=== PATIENT | female | born 1965 | race Caucasian/White ===

== ENCOUNTER → 2016-10-29 | Outpatient (CLI) | payer BC ==
[~2016-10-29] MED LIST: AMLO5TAB2 PO; DICL75TA2 PO; HYDR-3876 PO; HYDR25TA4 PO; LEVO137T17 PO; LEVO150T6 PO; LISI1TAB10 PO; METF1000 PO; MTF500T PO; NAPR-243 PO; NAPR500T3 PO; NITR-65 PO; NITR-68 PO; OXYC-471 PO; PNT40TEC PO; SERT50TA9 PO; TAMS0.4C98 PO
--- NOTE | 2016-10-29 19:54 | Diagnostic Imaging Report ---
INDICATION: Screening. At this time there are no current complaints. EXAMINATION: Bilateral digital screening mammogram with CAD. The current study was also evaluated with a Computer Aided Detection (CAD) system. COMPARISON: This is the patient's baseline study. FINDINGS: There are scattered fibroglandular densities in both breasts which could obscure a lesion. There is no primary or secondary sign of malignancy noted. IMPRESSION: 1. There is no evidence for malignancy. 2. The patient should have her annual bilateral screening mammogram on schedule in October of 2017. ACR BI-RADS Category 1: Negative. Result letter will be mailed to the patient. Note: At least 10% of breast cancer is not imaged by mammography. Dictated by: Dictated on workstation # [id number]
== END ==
LOC: RAD 15:16
PROVIDERS: ATTEND Nurse Practitioner Family
DX: Z12.31 Encounter for screening mammogram for malignant neoplasm of breast (principal)
CPT/HCPCS: 77067

== ENCOUNTER 2017-03-12 21:59 | Emergency (ER) | payer BC ==
[~2017-03-12] VITALS: Ht 157.5 cm; Wt 99.8 kg
[2017-03-12] MEDS ORDERED: ALPR0.5T7 (22:09)
[2017-03-12 22:19] LABS: BILIRUBIN,URINE NEGATIVE (NEGATIVE); KETONES,URINE NEGATIVE (NEGATIVE); LEUKOCYTE ESTERASE ,URINE NEGATIVE (NEGATIVE); NITRITE,URINE NEGATIVE (NEGATIVE); PH,URINE 6.5 (5-9); PROTEIN,URINE NEGATIVE (NEGATIVE); UROBILINOGEN,URINE NORMAL (NORMAL)
--- NOTE | 2017-03-12 22:25 | ED GU-Female ---
General Chief Complaint: Abdominal/GI Problems Stated Complaint: R SIDE, BACK, STOMACH PAIN Nursing Triage Note: c/o R flank pain wrapping around to R abdomen Nursing Sepsis Screen: No Definite Risk Source: patient Exam Limitations: no limitations History of Present Illness Time seen by provider: 22:25 Initial Comments Patient presents with earlier back flank pain on the right side starting up and urinary hesitancy. She has no dysuria. She has no fevers or chills. She says she had kidney stones about a year ago so large and to be glass about by Dr. Matias. She is having no nausea Allergies and Home Medications Allergies Coded Allergies: ciprofloxacin (Verified Allergy, Intermediate, N/V, 11/06/15) Home Medications Levothyroxine Sodium 150 Mcg Tablet, 150 MCG PO DAILY, (Reported) Constitutional: see HPI, No chills, No diaphoresis, No fever, No malaise Cardiovascular: No chest pain, No palpitations Gastrointestinal: see HPI, No diarrhea, No nausea, No vomiting Genitourinary: denies burning, denies dysuria, denies incontinence (hesitancy) , other Musculoskeletal: see HPI, back pain (right flank) Skin: No pruritus, No rash Past Nzfehbg-Yrxwgb-Nswoay Hx Patient Social History Alcohol Use: Denies Use Recreational Drug Use: No Smoking Status: Never a Smoker Recent Foreign Travel: No Contact w/Someone Who Travel: No Recent Infectious Disease Expo: No Recent Hopitalizations: No Immunizations Up To Date Tetanus Booster (TDap): Unknown Seasonal Allergies Seasonal Allergies: No Surgeries HX Surgeries: Yes (SHOULDER SCOPE) Surgeries: Section, Hysterectomy Respiratory Hx Respiratory Disorders: No Cardiovascular Hx Cardiac Disorders: Yes (STRESS TEST OVER A YEAR AGO - NO PROBLEMS) Cardiac Disorders: Hypertension Neurological Hx Neurological Disorders: Yes (HASN'T HAD ONE IN A VERY LONG TIME) Reproductive System Hx Reproductive Disorders: No HIV/AIDS: No Female Reproductive Disorders: Denies Genitourinary Hx Genitourinary Disorders: Yes Genitourinary Disorders: Kidney Stones Gastrointestinal Hx Gastrointestinal Disorders: No (GALLSTONES) Gastrointestinal Disorders: Gall Bladder Disease Musculoskeletal Hx Musculoskeletal Disorders: Yes (ARTHRITIS IN HIPS) Musculoskeletal Disorders: Arthritis Endocrine Hx Endocrine Disorders: Yes Endocrine Disorders: Hypothyroidsim HEENT HX ENT Disorders: Yes (GLASSES) Loss of Vision: Bilateral Hearing Impairment: Denies Cancer Hx Cancer: No Psychosocial Hx Psychiatric Problems: Yes Behavioral Health Disorders: Anxiety Integumentary HX Skin/Integumentary Disorder: No Blood Transfusions Hx Blood Disorders: No Adverse Reaction to a Blood Tr: No Family Medical History Family Medial History: Coronary artery bypass surgery 19 MOTHER Dementia 19 FATHER Diabetes mellitus 19 MOTHER FH: chronic obstructive pulmonary disease 19 MOTHER FH: emphysema 19 FATHER Thyroid disease 19 FATHER Physical Exam Vital Signs Vital Sign - Last 12Hours 03/12/17 22:07 Temp 96.7 Pulse 58 Resp 18 B/P (MAP) 185/93 Pulse Ox 95 Capillary Refill : Less Than 3 Seconds General Appearance: WD/WN, mild distress HEENT: PERRL/EOMI, pharynx normal Neck: full range of motion, normal inspection Cardiovascular: normal peripheral pulses, regular rate, rhythm, no edema Respiratory: chest non-tender, lungs clear Gastrointestinal: normal bowel sounds, non tender Back: normal inspection, CVA tenderness (R) Neurologic/Psychiatric: alert, oriented x 3 Skin: normal color, warm/dry Progress/Results/Core Measures Results/Orders Lab Results Laboratory Tests Test 03/12/17 22:10 Range/Units Urine Color YELLOW Urine Clarity CLEAR Urine pH 6.5 5-9 Urine Specific Lamar 1.005 L 1.016-1.022 Urine Protein NEGATIVE NEGATIVE Urine Glucose (UA) NEGATIVE NEGATIVE Urine Ketones NEGATIVE NEGATIVE Urine Nitrite NEGATIVE NEGATIVE Urine Bilirubin NEGATIVE NEGATIVE Urine Urobilinogen NORMAL NORMAL MG/DL Urine Leukocyte Esterase NEGATIVE NEGATIVE Urine RBC (Auto) 5+ H NEGATIVE Urine RBC 5-10 H /HPF Urine WBC NONE /HPF Urine Squamous Epithelial Cells 2-5 /HPF Urine Crystals NONE /LPF Urine Bacteria NONE /HPF Urine Casts NONE /LPF Urine Mucus NEGATIVE /LPF Urine Culture Indicated NO My Orders Orders - MATTHEW HARRIS Ua Culture If Indicated (03/12/17 22:12) Urine Bedside (03/12/17 22:26) Ct Abd/Pelvis Wo(Kidney Stone) (03/12/17 22:26) Saline Lock/Iv-Start (03/12/17 22:26) Ns Iv 1000 Ml (Sodium Chloride 0.9%) (03/12/17 22:26) Ketorolac Injection (Toradol Injection) (03/12/17 22:26) Fentanyl Injection (Sublimaze Injection (03/12/17 23:05) Ceftriaxone Injection (Rocephin Injectio (03/12/17 23:30) Abdomen, Flat & Upright/Decub (03/12/17 23:22) Hydrocodone/Apap 10/325 Tablet (Lortab 1 (03/12/17 23:30) Medications Given in ED Current Medications Medications Dose Ordered Sig/Wilber Route Start Time Stop Time Status Last Admin Dose Admin Acetaminophen/ Hydrocodone Bitart 1 ea ONCE ONCE PO 03/12/17 23:30 03/12/17 23:32 DC 03/12/17 23:37 1 EA Ceftriaxone Sodium 1000 mg/ Sodium Chloride 50 ml @ 100 mls/hr ONCE ONCE IV 03/12/17 23:30 03/12/17 23:59 DC 03/12/17 23:37 100 MLS/HR Sodium Chloride 1,000 ml @ 0 mls/hr Q0M ONCE IV 03/12/17 22:26 03/12/17 22:28 DC 03/12/17 22:32 0 MLS/HR Vital Signs/I&O Vital Sign - Last 12Hours 03/12/17 22:07 Temp 96.7 Pulse 58 Resp 18 B/P (MAP) 185/93 Pulse Ox 95 Blood Pressure Mean: 123 Consults Consults : Consulting Physician: GEOFFREY ERNST MD Consults Notes [id number]: Discussed the case. He recommends giving her pain controlled and if she can have pain controlled and there is no signs of sepsis or infection she could be given a gram or Rocephin and sent out with ciprofloxacin as well as hydrocodone's 10 x 3 25 2 tablets every 6 hours when necessary first inkling of pain. She should follow up at 2:30 in the afternoon Wednesday in his office that he can get her set up to have it taken care of Wednesday. He also has to get a KUB done today so it has something to compare it. He also asked that we fax all records over to his office. Departure Impression Impression: Primary Impression: Kidney stone on right side Disposition: 01 HOME, SELF-CARE Condition: Improved Departure-Patient Inst. Decision time for Depature: 00:53 Referrals: [facility] (PCP) Primary Care Physician Patient Instructions: Kidney Stones (DC) Add. Discharge Instructions: You have a 8-9 mm kidney stone on the right side that will not pass on its own. You can use Naprosyn 2 tablets twice a day and then at the earliest inkling of pain you should take 1-2 tablets of the oxycodone every 6 hours as needed. While you're on the oxycodone you should be on MiraLAX at least once a day keep your stools moving. You should not drive or do anything to involve making contracts or operating heavy machinery while under the influence of opiates. You 'll be sent with antibiotics to the pharmacy to [facility] and be taken twice daily. You should report to the urologist office Wednesday at 2:30 in the afternoon so you can be set up to have the stone removed Wednesday. If you're having fevers or intractable nausea or pain then you should return to the ER. If you're out of pain medicines you can also talk to your primary care physician and get refills . All discharge instructions reviewed with patient and/or family. Voiced understanding. Scripts Oxycodone HCl/Acetaminophen (Percocet 10-325 mg Tablet) 1 Each Tablet 1-2 EACH PO Q6H Y for PAIN-MILD TO MODERATE, #30 TAB 0 Refills Prov: MATTHEW HARRIS 03/13/17 Cephalexin (Keflex) 500 Mg Capsule 500 MG PO BID for 14 Days, #28 CAP 0 Refills Prov: MATTHEW HARRIS 03/13/17 Work/School Note: Work Release Form Date Seen in the Emergency Department: Mar 13, 2017 Return to Work: Mar 13, 2017 Restrictions: Need Release from Doctor Other Restrictions Listed Below: No driving or operating heavy machinery Copy Copies To 1: KAM BRITO DO Copies To 2: GEOFFREY ERNST MD, TITUS J Mar 12, 2017 22:25
[2017-03-12] MEDS ORDERED: KETOROLAC 30 MG/ML VIAL IM STA (22:26)
[2017-03-12] MEDS ORDERED: NS IV 1000 ML 1,000 ML IV ONE (22:26)
[2017-03-12] MEDS ORDERED: fentaNYL INJECTION 100 MCG/2 ML AMP IVP STA (23:05)
[2017-03-12] MEDS ORDERED: HYDROcodone/APAP 10 MG/325 MG (LORTAB) TAB PO ONE (23:30)
[2017-03-12] MEDS ORDERED: cefTRIAXone INJECTION 1,000 MG in NS (IVPB) 50 ML IV ONE (23:30)
[2017-03-13] MEDS ORDERED: OXYC-202 PO (00:59)
[2017-03-13] MEDS ORDERED: CEPH-507 PO (00:59)
[2017-03-13 01:00] VITALS: BP 147/93
[2017-03-13] MEDS ORDERED: RX-OXYCODONE/APAP 5-325 MG #4 TAB PK PO PRN (01:30)
--- NOTE | 2017-03-13 07:09 | Diagnostic Imaging Report ---
INDICATION: Right lower quadrant pain. FINDINGS: The lung bases are clear. The bowel gas pattern is nonspecific. There is no free air. The osseous structures are unremarkable. There are several calcified phleboliths in the pelvis. IMPRESSION: Nonspecific bowel gas pattern Dictated by: Dictated on workstation # [id number]
--- NOTE | 2017-03-13 08:18 | Diagnostic Imaging Report ---
PROCEDURE: CT urinary tract, rule out kidney stone. TECHNIQUE: Multiple contiguous axial images were obtained through the abdomen and pelvis without the use of intravenous contrast. INDICATION: Right lower quadrant pain with a history of lithotripsy, partial hysterectomy and . Comparison is made with prior examination from 06/11/16. FINDINGS: The heart size is normal. The lung bases are clear. The liver is normal in size without focal lesions. There is cholelithiasis. There is no gallbladder wall thickening or pericholecystic fluid. The spleen is unremarkable. The pancreas and adrenal glands are unremarkable. There is a 3 mm nonobstructing stone in the left kidney. There is enlargement of the right kidney with moderately severe right hydronephrosis. This is secondary to a 6.5 mm stone in the region of the right UPJ. The bowel gas pattern is nonspecific. The appendix is normal. There is no free air. There is no pelvic mass, adenopathy or free fluid. The osseous structures are unremarkable. IMPRESSION: Moderately severe right hydronephrosis secondary to a 6.5 mm stone in the region of the right UPJ. Additionally, there are several nonobstructing additional stones in both kidneys, right greater than left. Cholelithiasis Dictated by: Dictated on workstation # [id number]
--- OUTSIDE RECORDS SUMMARY | 2017-03-16 08:31 | XMS REPORT ---
Author MALI Bhatt [facility] eClinicalWorks Address Unknown Phone Unavailable Care Team Providers Care Manager Icu Name Role Phone MALI ORDOÑEZ CP Unavailable Allergies, Adverse Reactions, Alerts Substance Reaction Event Type Cipro vomiting Drug Allergy Amitriptyline HCl fatigue Drug Allergy Problems Problem Type Condition Code Onset Dates Condition Status Problem Dysuria 788.1 Active Problem Trigger finger (acquired) 727.03 Active Problem Abdominal pain, unspecified site 789.00 Active Problem Diabetes 250.00 Active Problem Calculus of kidney 592.0 Active Problem Hypertension, benign I10 Active Problem Dysphagia, unspecified 787.20 Active Problem Insomnia, unspecified 780.52 Active Problem Personal history of noncompliance with medical treatment, presenting hazards to health V15.81 Active Problem Chest pain, unspecified 786.50 Active Assessment Hypertension, benign I10 Active Problem Influenza with other respiratory manifestations 487.1 Active Problem Nausea with vomiting 787.01 Active Problem Hematuria, unspecified 599.70 Active Medications Medication Code System Code Instructions Start Date End Date Status Dosage Lisinopril-Hydrochlorothiazide [facility] 52013663831 20-25 TAKE ONE TABLET BY MOUTH DAILY Metformin HCl [facility] [address]-97 1000 MG Orally Twice a day February 01, 2015 1 tablet with meals Neurontin [facility] [address]-29 100 mg Sep 10, 2014 1-3 capsule by Oral route 1 time per day PRN QHS for insomnia levothyroxine ND 0 150 mcg 1 tab(s) orally once a day Sep 10, 2014 1 tablet by Oral route 1 time [place] [address]-22 5 MG Orally Once a day Jul 24, 2015 1 tablet Procedures Procedure Coding System Code Date Office Visit, Est Pt., Level 3 CPT-4 39509 Jul 24, 2015 Vital Signs Date/Time: Jul 24, 2015 Temperature 99.5 F Weight 251.6 lbs Height 62 in BMI 46.01 Index Blood Pressure Diastolic 90 mmHg Blood Pressure Systolic 140 mmHg Cardiac Monitoring Heart Rate 60 bpm Results No Known Results Summary Purpose eClinicalWorks Submission
--- OUTSIDE RECORDS SUMMARY | 2017-03-16 08:31 | XMS REPORT ---
Author MALI Bhatt [facility] eClinicalWorks Address Unknown Phone Unavailable Care Team Providers Care Elementary Special Education Teacher Name Role Phone MALI ORDOÑEZ CP Unavailable Allergies, Adverse Reactions, Alerts Substance Reaction Event Type Cipro vomiting Drug Allergy Amitriptyline HCl fatigue Drug Allergy Problems Problem Type Condition Code Onset Dates Condition Status Problem Hematuria, unspecified 599.70 Active Problem Abdominal pain, unspecified site 789.00 Active Problem Dysuria 788.1 Active Problem Calculus of kidney 592.0 Active Problem Personal history of noncompliance with medical treatment, presenting hazards to health V15.81 Active Problem Diabetes 250.00 Active Problem Insomnia, unspecified 780.52 Active Problem Trigger finger (acquired) 727.03 Active Problem Chest pain, unspecified 786.50 Active Problem Dysphagia, unspecified 787.20 Active Assessment Shoulder pain, left 719.41 Active Assessment Diabetes 250.00 Active Problem Influenza with other respiratory manifestations 487.1 Active Problem Nausea with vomiting 787.01 Active Medications Medication Code System Code Instructions Start Date End Date Status Dosage Lisinopril-Hydrochlorothiazide [facility] 02589688355 20-25 TAKE ONE TABLET BY MOUTH DAILY levothyroxine NDC 0 150 mcg 1 tab(s) orally once a day Sep 10, 2014 1 tablet by Oral route 1 time per day Neurontin [facility] [address]-51 100 mg Sep 10, 2014 1-3 capsule by Oral route 1 time per day PRN QHS for insomnia Diclofenac Sodium [facility] [address]-55 75 MG Orally Once a day Jun 05, 2015 Jul 05, 2015 1 tablet Cetirizine HCl [facility] [address]-72 10 MG Orally Once a day Jun 05, 2015 Jul 05, 2015 1 tablet as needed Metformin HCl [facility] [address]-98 1000 MG Orally Twice a day February 01, 2015 1 tablet with meals Procedures Procedure Coding System Code Date X-RAY EXAM OF SHOULDER CPT-4 87765 Jun 05, 2015 Office Visit, Est Pt., Level 3 CPT-4 36747 Jun 05, 2015 GLYCATED HEMOGLOBIN TEST CPT-4 42617 Jun 05, 2015 Vital Signs Date/Time: Jun 05, 2015 Temperature 97.3 F Weight 249.7 lbs Height 62 in BMI 45.67 Index Blood Pressure Diastolic 84 mmHg Blood Pressure Systolic 138 mmHg Cardiac Monitoring Heart Rate 76 bpm Results Name Result Date Reference Range Unit Abnormality Flag A1C (IN HOUSE) Summary Purpose eClinicalWorks Submission
--- OUTSIDE RECORDS SUMMARY | 2017-03-16 08:31 | XMS REPORT ---
Author Author MALI ORDOÑEZ [facility] Address [address] [place] [address] Care Team Providers Care Acquisition Associate Name Role Phone MALI ORDOÑEZ Unavailable PROBLEMS Type Condition ICD9-CM Code [id number] Code Onset Dates Condition Status SNOMED Code Problem Chest pain, unspecified 786.50 Active 98704545 Problem Calculus of kidney 592.0 Active 89387209 Problem Personal history of noncompliance with medical treatment, presenting hazards to health V15.81 Active 202747245 Problem Diabetes type 2, controlled E11.9 Active 26359967 Assessment Acquired hypothyroidism E03.9 May, Active 283041129 Problem Hypertension, benign I10 Active 86332213 Problem Acute upper respiratory infection, unspecified J06.9 Active 187346277 Problem Cough R05 Active 55577334 Problem Diabetes 250.00 Active 76302354 Problem Other viral agents as the cause of diseases classified elsewhere B97.89 Active 066419065 Problem Influenza with other respiratory manifestations 487.1 Active 7867379 Problem Nausea with vomiting 787.01 Active 87653910 Assessment Controlled type 2 diabetes mellitus without complication, without long-term current use of insulin E11.9 May, Active 698743699 Assessment Epigastric pain R10.13 May, Active 93818003 Problem Abdominal pain, unspecified site 789.00 Active 30054725 Problem Trigger finger (acquired) 727.03 Active 4601799 Problem Hematuria, unspecified 599.70 Active 55185653 Problem Insomnia, unspecified 780.52 Active 185636657 Problem Dysuria 788.1 Active 41090047 Problem Dysphagia, unspecified 787.20 Active 88227776 ALLERGIES No Known Allergies SOCIAL HISTORY No smoking Hx information available PLAN OF CARE VITAL SIGNS MEDICATIONS No Known Medications RESULTS Name Result Date Reference Range AMYLASE 2016-05-26 Amylase, Serum 46 31-124 LIPASE 2016-05-26 Lipase, Serum 44 0-59 TSH 2016-05-26 TSH 3.150 0.450-4.500 LIPID PANEL 2016-05-26 Cholesterol, Total 193 100-199 Triglycerides 126 0-149 HDL Cholesterol 40 >39 VLDL Cholesterol Tobin 25 5-40 LDL Cholesterol Calc 128 0-99 CMP 2016-05-26 Glucose, Serum 134 65-99 BUN 13 6-24 Creatinine, Serum 0.64 0.57-1.00 eGFR If NonAfricn Am 106 >59 eGFR If Africn Am 122 >59 BUN/Creatinine Ratio 20 9-23 Sodium, Serum 142 134-144 Potassium, Serum 4.2 3.5-5.2 Chloride, Serum 99 97-108 Carbon Dioxide, Total 23 18-29 Calcium, Serum 9.8 8.7-10.2 Protein, Total, Serum 7.3 6.0-8.5 Albumin, Serum 4.1 3.5-5.5 Globulin, Total 3.2 1.5-4.5 A/G Ratio 1.3 1.1-2.5 Bilirubin, Total 0.4 0.0-1.2 Alkaline Phosphatase, S 93 39-117 AST (SGOT) 45 0-40 ALT (SGPT) 45 0-32 CBC 2016-05-26 WBC 6.0 3.4-10.8 RBC 4.66 3.77-5.28 Hemoglobin 13.2 11.1-15.9 Hematocrit 40.6 34.0-46.6 MCV 87 79-97 MCH 28.3 26.6-33.0 MCHC 32.5 31.5-35.7 RDW 13.5 12.3-15.4 Platelets 286 150-379 Neutrophils 58 Lymphs 30 Monocytes 10 Eos 2 Basos 0 Neutrophils (Absolute) 3.5 1.4-7.0 Lymphs (Absolute) 1.8 0.7-3.1 Monocytes(Absolute) 0.6 0.1-0.9 Eos (Absolute) 0.1 0.0-0.4 Baso (Absolute) 0.0 0.0-0.2 Immature Granulocytes 0 Immature Grans (Abs) 0.0 0.0-0.1 PROCEDURES Procedure Date Ordered Related Diagnosis Body Site COMPLETE CBC W/AUTO DIFF WBC May 26, 2016 COMPREHEN METABOLIC PANEL May 26, 2016 VENIPUNCT, ROUTINE* May 26, 2016 ASSAY OF AMYLASE May 26, 2016 ASSAY THYROID STIM HORMONE May 26, 2016 LIPID PANEL Sept 20, 2016 ASSAY OF LIPASE May 26, 2016 IMMUNIZATIONS No Known Immunizations
--- OUTSIDE RECORDS SUMMARY | 2017-03-16 08:32 | XMS REPORT ---
Author Author ÁNGEL TILLMAN [facility] eClinicalWorks Address Unknown Phone Unavailable Care Team Providers Care Education Managers Name Role Phone ÁNGEL TILLMAN CP Unavailable Allergies No Known Allergies Problems Problem Type Condition Code Onset Dates [...] Problem Chest pain, unspecified 786.50 Active Assessment Impingement syndrome, shoulder, left M75.42 Active Problem Influenza with other respiratory manifestations 487.1 Active Problem Nausea with vomiting 787.01 Active Assessment SLAP lesion of left shoulder S43.432A Active Problem Hematuria, unspecified 599.70 Active Medications No Known Medications Procedures Procedure Coding System Code Date Office Visit, Est Pt., Level 3 CPT-4 55227 Oct 10, 2015 Vital Signs Date/Time: Oct 10, 2015 Blood Pressure Diastolic 82 mmHg Blood Pressure Systolic 121 mmHg Height 62 in Results No Known Results Summary Purpose eClinicalWorks Submission
--- OUTSIDE RECORDS SUMMARY | 2017-03-16 08:32 | XMS REPORT ---
Author Author MALI ORDOÑEZ [facility] eClinicalWorks Address Unknown Phone Unavailable Care Team Providers Care Senior Director Marketing Name Role Phone MALI ORDOÑEZ CP Unavailable Allergies No Known Allergies Problems Problem Type Condition Code Onset Dates Condition Status Problem Abdominal pain, unspecified site 789.00 Active Problem Insomnia, unspecified 780.52 Active Problem Trigger finger (acquired) 727.03 Active Problem Hypertension, benign I10 Active Problem Diabetes 250.00 Active Problem Diabetes type 2, controlled E11.9 Active Problem Chest pain, unspecified 786.50 Active Problem Dysphagia, unspecified 787.20 Active Problem Calculus of kidney 592.0 Active Problem Personal history of noncompliance with medical treatment, presenting hazards to health V15.81 Active Problem Influenza with other respiratory manifestations 487.1 Active Problem Nausea with vomiting 787.01 Active Problem Hematuria, unspecified 599.70 Active Problem Dysuria 788.1 Active Medications Medication Code System Code Instructions Start Date End Date Status Dosage Metformin HCl [facility] [address]-52 1000 MG Orally Twice a day 1 tablet with meals Amlodipine Besylate [facility] [address]-75 5 MG Orally Once a day 1 tablet Lisinopril-Hydrochlorothiazide [facility] [address]-53 20-25 MG Orally Once a day 1 tablet Diclofenac Sodium [facility] [address]-54 75 MG Orally Once a day 1 tablet Results No Known Results Summary Purpose eClinicalWorks Submission
--- OUTSIDE RECORDS SUMMARY | 2017-03-16 08:32 | XMS REPORT ---
Author Author MALI ORDOÑEZ [facility] Address [address] [place] [address] Care Team Providers Care Fluorescent Solution Mixer Name Role Phone MALI ORDOÑEZ Unavailable PROBLEMS Type Condition ICD9-CM Code [id number] Code Onset Dates Condition Status SNOMED Code Problem Chest pain, unspecified 786.50 Active 64497008 Problem Calculus of kidney 592.0 Active 08665256 Problem Personal history of noncompliance with medical treatment, presenting hazards to health V15.81 Active 374437635 Problem Diabetes type 2, controlled E11.9 Active 84695843 Problem Hypertension, benign I10 Active 62615423 Problem Acute upper respiratory infection, unspecified J06.9 Active 638732638 Problem Cough R05 Active 28393406 Problem Diabetes 250.00 Active 12215186 Problem Other viral agents as the cause of diseases classified elsewhere B97.89 Active 080983212 Problem Influenza with other respiratory manifestations 487.1 Active 8860164 Problem Nausea with vomiting 787.01 Active 33087547 Assessment Right upper quadrant pain R10.11 May, Active 771208277 Problem Abdominal pain, unspecified site 789.00 Active 60283763 Problem Trigger finger (acquired) 727.03 Active 1192299 Problem Hematuria, unspecified 599.70 Active 87333302 Problem Insomnia, unspecified 780.52 Active 061390369 Problem Dysuria 788.1 Active 54048807 Problem Dysphagia, unspecified 787.20 Active 57248084 ALLERGIES No Known Allergies SOCIAL HISTORY No smoking Hx information available PLAN OF CARE VITAL SIGNS MEDICATIONS No Known Medications RESULTS Name Result Date Reference Range Ultrasound : Gallbladder 2016-06-03 PROCEDURES No Known procedures IMMUNIZATIONS No Known Immunizations
--- OUTSIDE RECORDS SUMMARY | 2017-03-16 08:32 | XMS REPORT ---
Author Author MALI ORDOÑEZ Organization eClinicalWorks Address Unknown Phone Unavailable Care Team Providers Care Lease Attendant Name Role Phone MALI ORDOÑEZ CP Unavailable Allergies No Known Allergies Problems Problem Type Condition Code Onset Dates Condition Status Problem Hematuria, unspecified 599.70 Active Problem Abdominal pain, unspecified site 789.00 Active Problem Dysuria 788.1 Active Problem Influenza with other respiratory manifestations 487.1 Active Problem Nausea with vomiting 787.01 Active Problem Calculus of kidney 592.0 Active Problem Personal history of noncompliance with medical treatment, presenting hazards to health V15.81 Active Problem Diabetes 250.00 Active Problem Insomnia, unspecified 780.52 Active Problem Trigger finger (acquired) 727.03 Active Problem Chest pain, unspecified 786.50 Active Problem Dysphagia, unspecified 787.20 Active Medications No Known Medications Results No Known Results Summary Purpose [employer] Submission
--- OUTSIDE RECORDS SUMMARY | 2017-03-16 08:32 | XMS REPORT ---
Author Author MALI ORDOÑEZ [facility] [place] eClinicalWorks Address Unknown Phone Unavailable Care Team Providers Care Rn Diabetes Name Role Phone MALI ORDOÑEZ CP Unavailable [...] Problem Chest pain, unspecified 786.50 Active Problem Influenza with other respiratory manifestations 487.1 Active Problem Nausea with vomiting 787.01 Active Problem Hematuria, unspecified 599.70 Active Medications No Known Medications Results No Known Results Summary Purpose eClinicalWorks Submission
--- OUTSIDE RECORDS SUMMARY | 2017-03-16 08:32 | XMS REPORT ---
Author Author MALI ORDOÑEZ [facility] Address [address] [place] [address] Care Team Providers Care Gericare Aide Name Role Phone MALI ORDOÑEZ Unavailable PROBLEMS Type Condition ICD9-CM Code EUY75-NM Code Onset Dates Condition Status SNOMED Code Problem Chest pain, unspecified 786.50 Active 90032627 Problem Calculus of kidney 592.0 Active 44994418 Problem Personal history of noncompliance with medical treatment, presenting hazards to health V15.81 Active 160582178 Problem Diabetes type 2, controlled E11.9 Active 72977966 Problem Hypertension, benign I10 Active 67371239 Problem Acute upper respiratory infection, unspecified J06.9 Active 722311322 Problem Cough R05 Active 20125153 Problem Diabetes 250.00 Active 03979439 Problem Other viral agents as the cause of diseases classified elsewhere B97.89 Active 211504411 Problem Influenza with other respiratory manifestations 487.1 Active 4124559 Problem Nausea with vomiting 787.01 Active 87254300 Assessment Hematuria R31.9 May, Active 54905135 Problem Abdominal pain, unspecified site 789.00 Active 26204759 Problem Trigger finger (acquired) 727.03 Active 9317276 Problem Hematuria, unspecified 599.70 Active 10431673 Problem Insomnia, unspecified 780.52 Active 097008913 Problem Dysuria 788.1 Active 94202506 Problem Dysphagia, unspecified 787.20 Active 81588299 ALLERGIES No Known Allergies SOCIAL HISTORY No smoking Hx information available PLAN OF CARE VITAL SIGNS MEDICATIONS No Known Medications RESULTS Name Result Date Reference Range UA LONG DIP (IN HOUSE) 2016-06-04 Lot # [id number] Exp date May 2017 Clarity cloudy Color dark red Odor no GLU Negative HUNTER Negative KET Negative SG >=1.030 BLO +++ pH 6.5 Protein + URO 1.0 NIT Negative LYRIC Negative Lot # [id number] Exp date Apr 2017 PROCEDURES Procedure Date Ordered Related Diagnosis Body Site URINALYSIS, AUTO, W/O SCOPE Jun 04, 2016 IMMUNIZATIONS No Known Immunizations
--- OUTSIDE RECORDS SUMMARY | 2017-03-16 08:32 | XMS REPORT ---
Author Author MALI ORDOÑEZ [facility] Address [address] [place] [address] Care Team Providers Care Commercial Pest Control Technician Name Role Phone MALI ORDOÑEZ Unavailable PROBLEMS Type Condition ICD9-CM Code TZX78-LM Code Onset Dates Condition Status SNOMED Code Problem Chest pain, unspecified 786.50 Active 06357696 Problem Calculus of kidney 592.0 Active 80635214 Problem Personal history of noncompliance with medical treatment, presenting hazards to health V15.81 Active 261717267 Problem Diabetes type 2, controlled E11.9 Active 88114070 Assessment Acquired hypothyroidism E03.9 May, Active 876738442 Problem Hypertension, benign I10 Active 17836585 Problem Acute upper respiratory infection, unspecified J06.9 Active 777099951 Problem Cough R05 Active 10633002 Problem Diabetes 250.00 Active 08823282 Problem Other viral agents as the cause of diseases classified elsewhere B97.89 Active 798051976 Problem Influenza with other respiratory manifestations 487.1 Active 6962838 Problem Nausea with vomiting 787.01 Active 52017729 Assessment Controlled type 2 diabetes mellitus without complication, without long-term current use of insulin E11.9 May, Active 148143200 Assessment Epigastric pain R10.13 May, Active 15461688 Problem Abdominal pain, unspecified site 789.00 Active 84057377 Problem Trigger finger (acquired) 727.03 Active 2601082 Problem Hematuria, unspecified 599.70 Active 86311446 Problem Insomnia, unspecified 780.52 Active 003092456 Problem Dysuria 788.1 Active 01626265 Problem Dysphagia, unspecified 787.20 Active 32838657 ALLERGIES Substance Reaction Event Type Date Status Cipro vomiting Drug Allergy May, Active Amitriptyline HCl fatigue Drug Allergy May, Active SOCIAL HISTORY No smoking Hx information available PLAN OF CARE VITAL SIGNS Height 62 in 2016-05-25 Weight 242.0 lbs 2016-05-25 Heart Rate 82 bpm 2016-05-25 Respiratory Rate 20 2016-05-25 BMI 44.26 kg/m2 2016-05-25 Blood pressure systolic 146 mmHg 2016-05-25 Blood pressure diastolic 84 mmHg 2016-05-25 MEDICATIONS Medication Instructions Dosage Frequency Start Date End Date Duration Status Synthroid 150 MCG Orally Once a day 1 tablet 24h Mar, 30 day(s ) Active Naproxen 500 MG Orally every 12 hrs 1 tablet as needed 12h Active MetFORMIN HCl ER 500 MG Orally 2 times a day 2 tablets 12h May, 30 day(s) Active RESULTS No Results PROCEDURES Procedure Date Ordered Related Diagnosis Body Site Office Visit, Est Pt., Level 3 May 25, 2016 IMMUNIZATIONS No Known Immunizations
--- OUTSIDE RECORDS SUMMARY | 2017-03-16 08:32 | XMS REPORT ---
Author Author ÁNGEL TILLMAN [facility] eClinicalWorks Address Unknown Phone Unavailable Care Team Providers Care Stone Finisher Name Role Phone ÁNGEL TILLMAN CP Unavailable [...] Active Problem Dysphagia, unspecified 787.20 Active Assessment Impingement syndrome, shoulder, left M75.42 Active Problem Influenza with other respiratory manifestations 487.1 Active Problem Nausea with vomiting 787.01 Active Medications No Known Medications Procedures Procedure Coding System Code Date DEPO MEDROL 80 MG/ML CPT-4 J1040 Jul 04, 2015 Office Visit, Est Pt., Level 3 CPT-4 09258 Jul 04, 2015 DRAIN/INJECT, JOINT/BURSA CPT-4 45713 Jul 04, 2015 Vital Signs Date/Time: Jul 04, 2015 Blood Pressure Diastolic 86 mmHg Blood Pressure Systolic 130 mmHg Height 62 in Results Name Result Date Reference Range Unit Abnormality Flag JOINT INJECTION-INTERMEDIATE JOINT (specify site) Summary Purpose eClinicalWorks Submission
--- OUTSIDE RECORDS SUMMARY | 2017-03-16 08:32 | XMS REPORT ---
Author Author MALI ORDOÑEZ Organization eClinicalWorks Address Unknown Phone Unavailable Care Team Providers Care Sales Advisory Manager Name Role Phone MALI ORDOÑEZ CP Unavailable [...] Medications Results No Known Results Summary Purpose eduFireinicalWorks Submission
--- OUTSIDE RECORDS SUMMARY | 2017-03-16 08:32 | XMS REPORT ---
Author Author MALI ORDOÑEZ Organization eClinicalWorks Address Unknown Phone Unavailable Care Team Providers Care Enterprise Sales Person Name Role Phone MALI ORDOÑEZ CP Unavailable [...] 787.01 Active Problem Hematuria, unspecified 599.70 Active Assessment Diabetes type 2, controlled E11.9 Active Problem Dysuria 788.1 Active Medications Medication Code System Code Instructions Start Date End Date Status Dosage Metformin HCl [facility] [address]-20 1000 MG Orally Twice a day 1 tablet with meals Synthroid [facility] [address]-90 150 MCG Orally Once a day March 27, 2016 1 tablet Naproxen [facility] [address]-70 500 MG Orally every 12 hrs 1 tablet as needed Lisinopril-Hydrochlorothiazide [facility] [address]-54 20-25 MG Orally Once a day 1 tablet Amlodipine Besylate [facility] [address]-19 5 MG Orally Once a day 1 tablet Procedures Procedure Coding System Code Date Office Visit, Est Pt., Level 3 CPT-4 57444 March 27, 2016 GLYCATED HEMOGLOBIN TEST CPT-4 27298 March 27, 2016 Vital Signs Date/Time: March 27, 2016 Cardiac Monitoring Heart Rate 80 bpm Weight 242.6 lbs Height 62 in Blood Pressure Diastolic 78 mmHg Blood Pressure Systolic 138 mmHg Results No Known Results Summary Purpose eClinicalWorks Submission
--- OUTSIDE RECORDS SUMMARY | 2017-03-16 08:32 | XMS REPORT ---
Author Author MALI ORDOÑEZ [facility] eClinicalWorks Address Unknown Phone Unavailable Care Team Providers Care Brisket Puller Name Role Phone MALI ORDOÑEZ CP Unavailable [...] Active Assessment Shoulder pain, left 719.41 Active Problem Influenza with other respiratory manifestations 487.1 Active Problem Nausea with vomiting 787.01 Active Medications No Known Medications Procedures Procedure Coding System Code Date X-RAY EXAM OF SHOULDER CPT-4 04409 Jun 10, 2015 Results No Known Results Summary Purpose eClinicalWorks Submission
--- OUTSIDE RECORDS SUMMARY | 2017-03-16 08:33 | XMS REPORT ---
Author MALI Bhatt [facility] eClinicalWorks Address Unknown Phone Unavailable Care Team Providers Care Flux Tube Attendant Name Role Phone MALI ORDOÑEZ CP [...] Instructions Start Date End Date Status Dosage levothyroxine ND 0 150 mcg 1 tab(s) orally once a day Sep 10, 2014 1 tablet by Oral route 1 time per day Lisinopril-Hydrochlorothiazide [facility] 20935462568 20-25 TAKE ONE TABLET BY MOUTH DAILY Metformin HCl [facility] [address]-47 1000 MG Orally Twice a day February 01, 2015 1 tablet [place] [address]-80 5 MG Orally Once a day Jul 24, 2015 1 tablet Naproxen [facility] [address]-79 500 MG Orally every 12 hrs 1 tablet as needed Diclofenac Sodium ND 57166954516 75 Orally Once a day 1 tablet Procedures Procedure Coding System Code Date Office Visit, Est Pt., Level 3 CPT-4 82774 Aug 12, 2015 Vital Signs Date/Time: Aug 12, 2015 Temperature 97.5 F Weight 246.5 lbs Height 62 in BMI 45.08 Index Blood Pressure Diastolic 78 mmHg Blood Pressure Systolic 126 mmHg Cardiac Monitoring Heart Rate 84 bpm Results No Known Results Summary Purpose eClinicalWorks Submission
--- OUTSIDE RECORDS SUMMARY | 2017-03-16 08:33 | XMS REPORT ---
Author Author MALI ORDOÑEZ [facility] eClinicalWorks Address Unknown Phone Unavailable Care Team Providers Care Drafter Engineering Name Role Phone MALI ORDOÑEZ CP Unavailable [...] Active Problem Dysphagia, unspecified 787.20 Active Medications Medication Code System Code Instructions Start Date End Date Status Dosage Metoprolol Tartrate [facility] [address]-18 50 MG Orally Twice a day Jul 23, 2015 1 tablet Results No Known Results Summary Purpose eClinicalWorks Submission
--- OUTSIDE RECORDS SUMMARY | 2017-03-16 08:33 | XMS REPORT ---
Author Author WILL HAMMER [facility] eClinicalWorks Address Unknown Phone Unavailable Care Team Providers Care Senior Environmental Engineer Name Role Phone WILL HAMMER CP Unavailable Allergies, Adverse Reactions, Alerts Substance [...] Active Problem Hematuria, unspecified 599.70 Active Assessment Upper respiratory tract infection, unspecified type J06.9 Active Problem Dysuria 788.1 Active Medications Medication Code System Code Instructions Start Date End Date Status Dosage Zithromax Z-Peng [facility] [address]-34 250 MG Orally Once a day Jul 14, 2016 Jul 19, 2016 2 tablets on the first day, then 1 tablet daily for 4 days Naproxen [facility] [address]-06 500 MG Orally every 12 hrs 1 tablet as needed MetFORMIN HCl ER [facility] [address]-09 500 MG Orally 2 times a day May 25, 2016 2 tablets Synthroid [facility] [address]-17 150 MCG Orally Once a day March 27, 2016 1 tablet Sudafed [facility] [address]-51 30 MG Orally every 6 hrs Jul 14, 2016 1 tablet as needed Procedures Procedure Coding System Code Date Office Visit, Est Pt., Level 3 CPT-4 26147 Jul 14, 2016 Vital Signs Date/Time: Jul 14, 2016 Cardiac Monitoring Heart Rate 92 bpm Weight 238 lbs Height 62 in BMI 43.53 Index Blood Pressure Diastolic 80 mmHg Blood Pressure Systolic 132 mmHg Results No Known Results Summary Purpose eClinicalWorks Submission
--- OUTSIDE RECORDS SUMMARY | 2017-03-16 08:33 | XMS REPORT ---
Author Author MALI ORDOÑEZ [facility] eClinicalWorks Address Unknown Phone Unavailable Care Team Providers Care Laser Beam Machine Operator Name Role Phone MALI ORDOÑEZ CP Unavailable [...]
--- OUTSIDE RECORDS SUMMARY | 2017-03-16 08:33 | XMS REPORT ---
Author Author ÁNGEL TILLMAN [facility] eClinicalWorks Address Unknown Phone Unavailable Care Team Providers Care Eyelet Cutter Name Role Phone ÁNGEL TILLMAN CP Unavailable [...] Date DEPO MEDROL 80 MG/ML CPT-4 J1040 Aug 15, 2015 Office Visit, Est Pt., Level 3 CPT-4 06682 Aug 15, 2015 DRAIN/INJECT, JOINT/BURSA CPT-4 48054 Aug 15, 2015 Vital Signs Date/Time: Aug 15, 2015 Blood Pressure Diastolic 72 mmHg Blood Pressure Systolic 128 mmHg Height 62 in Results Name Result Date Reference Range Unit Abnormality Flag JOINT INJECTION-INTERMEDIATE JOINT (specify site) Summary Purpose eClinicalWorks Submission
--- OUTSIDE RECORDS SUMMARY | 2017-03-16 08:33 | XMS REPORT ---
Author Author MALI ORDOÑEZ [facility] Address [address] [place] [address] Care Team Providers Care Braille Teacher Name Role Phone MALI ORDOÑEZ Unavailable PROBLEMS Type Condition ICD9-CM Code [id number] Code Onset Dates Condition Status SNOMED Code Problem Chest pain, unspecified 786.50 Active 97589234 Problem Calculus of kidney 592.0 Active 23462517 Problem Personal history of noncompliance with medical treatment, presenting hazards to health V15.81 Active 381386298 Problem Diabetes type 2, controlled E11.9 Active 66935394 Problem Hypertension, benign I10 Active 91095171 Problem Acute upper respiratory infection, unspecified J06.9 Active 657918187 Problem Cough R05 Active 87948929 Problem Diabetes 250.00 Active 12725229 Problem Other viral agents as the cause of diseases classified elsewhere B97.89 Active 534934715 Problem Influenza with other respiratory manifestations 487.1 Active 5022204 Problem Nausea with vomiting 787.01 Active 29344288 Problem Abdominal pain, unspecified site 789.00 Active 03323024 Problem Trigger finger (acquired) 727.03 Active 5322480 Problem Hematuria, unspecified 599.70 Active 38294708 Problem Insomnia, unspecified 780.52 Active 807673075 Problem Dysuria 788.1 Active 52849629 Problem Dysphagia, unspecified 787.20 Active 47259856 ALLERGIES No Known Allergies SOCIAL HISTORY No smoking Hx information available PLAN OF CARE VITAL SIGNS MEDICATIONS No Known Medications RESULTS No Results PROCEDURES No Known procedures IMMUNIZATIONS No Known Immunizations
--- OUTSIDE RECORDS SUMMARY | 2017-03-16 08:33 | XMS REPORT ---
Author Author MALI ORDOÑEZ [facility] eClinicalWorks Address Unknown Phone Unavailable Care Team Providers Care Superintendent Stations Name Role Phone MALI ORDOÑEZ CP Unavailable [...]
--- OUTSIDE RECORDS SUMMARY | 2017-03-16 08:33 | XMS REPORT ---
Author Author MALI ORDOÑEZ Organization eClinicalWorks Address Unknown Phone Unavailable Care Team Providers Care Carpentry Supervisor Name Role Phone MALI ORDOÑEZ CP Unavailable [...] Problem Nausea with vomiting 787.01 Active Assessment Obesity, unspecified obesity severity, unspecified obesity type E66.9 Active Problem Hematuria, unspecified 599.70 Active Medications No Known Medications Procedures Procedure Coding System Code Date COMPREHEN METABOLIC PANEL CPT-4 51364 Sep 17, 2015 ASSAY THYROID STIM HORMONE CPT-4 19175 Sep 17, 2015 COMPLETE CBC W/AUTO DIFF WBC CPT-4 62703 Sep 17, 2015 VENIPUNCT, ROUTINE* CPT-4 44464 Sep 17, 2015 Results Name Result Date Reference Range Unit Abnormality Flag ROUTINE VENIPUNCTURE Summary Purpose eClinicalWorks Submission
--- OUTSIDE RECORDS SUMMARY | 2017-03-16 08:33 | XMS REPORT ---
Author MALI Bhatt [facility] eClinicalWorks Address Unknown Phone Unavailable Care Team Providers Care Shared Services And Outsourcing Manager Name Role Phone MALI ORDOÑEZ CP [...] Instructions Start Date End Date Status Dosage Naproxen [facility] [address]-09 500 MG Orally every 12 hrs 1 tablet as needed Metformin HCl [facility] [address]-42 1000 MG Orally Twice a day February 01, 2015 1 tablet with meals Diclofenac Sodium [facility] 92709367613 75 TAKE ONE TABLET BY MOUTH DAILY Amlodipine Besylate [facility] [address]-06 5 MG Orally Once a day Jul 24, 2015 1 tablet Lisinopril-Hydrochlorothiazide [facility] 72027777847 20-25 TAKE ONE TABLET BY MOUTH DAILY levothyroxine [facility] 0 150 mcg 1 tab(s) orally once a day Sep 10, 2014 1 tablet by Oral route 1 time per day Neurontin [facility] [address]-53 100 mg Sep 10, 2014 1-3 capsule by Oral route 1 time per day PRN QHS for insomnia Procedures Procedure Coding System Code Date Office Visit, Est Pt., Level 3 CPT-4 27829 Sep 16, 2015 Vital Signs Date/Time: Sep 16, 2015 Temperature 97.9 F Weight 250.0 lbs Height 62 in BMI 45.72 Index Blood Pressure Diastolic 100 mmHg Blood Pressure Systolic 140 mmHg Cardiac Monitoring Heart Rate 72 bpm Results No Known Results Summary Purpose eClinicalWorks Submission
--- OUTSIDE RECORDS SUMMARY | 2017-03-16 08:33 | XMS REPORT ---
Author Author MALI ORDOÑEZ [facility] Address [address] [place] [address] Care Team Providers Care Manager Process Excellence Name Role Phone MALI ORDOÑEZ Unavailable PROBLEMS Type Condition ICD9-CM Code SJA24-IA Code Onset Dates Condition Status SNOMED Code Problem Chest pain, unspecified 786.50 Active 83061543 Problem Calculus of kidney 592.0 Active 38913269 Problem Personal history of noncompliance with medical treatment, presenting hazards to health V15.81 Active 267860496 Problem Diabetes type 2, controlled E11.9 Active 35596275 Problem Hypertension, benign I10 Active 31580814 Problem Acute upper respiratory infection, unspecified J06.9 Active 705778924 Problem Cough R05 Active 41955641 Problem Diabetes 250.00 Active 95692685 Problem Other viral agents as the cause of diseases classified elsewhere B97.89 Active 156484439 Problem Influenza with other respiratory manifestations 487.1 Active 4735138 Problem Nausea with vomiting 787.01 Active 72051520 Assessment Hematuria R31.9 May, Active 94963263 Problem Abdominal pain, unspecified site 789.00 Active 66895023 Problem Trigger finger (acquired) 727.03 Active 4902270 Problem Hematuria, unspecified 599.70 Active 38342043 Problem Insomnia, unspecified 780.52 Active 153603160 Problem Dysuria 788.1 Active 00234896 Problem Dysphagia, unspecified 787.20 Active 61538915 ALLERGIES No Known Allergies SOCIAL HISTORY No smoking Hx information available PLAN OF CARE VITAL SIGNS MEDICATIONS No Known Medications RESULTS No Results PROCEDURES No Known procedures IMMUNIZATIONS No Known Immunizations
--- OUTSIDE RECORDS SUMMARY | 2017-03-16 08:33 | XMS REPORT ---
Author Author MALI ORDOÑEZ [facility] Address [address] [place] [address] Care Team Providers Care Extracorporeal Circulation Specialist Name Role Phone MALI ORDOÑEZ Unavailable PROBLEMS Type Condition ICD9-CM Code LCI48-KW Code Onset Dates Condition Status SNOMED Code Problem Chest pain, unspecified 786.50 Active 46110533 Problem Calculus of kidney 592.0 Active 16623715 Problem Personal history of noncompliance with medical treatment, presenting hazards to health V15.81 Active 474069582 Problem Diabetes type 2, controlled E11.9 Active 46955039 Problem Hypertension, benign I10 Active 26076704 Problem Acute upper respiratory infection, unspecified J06.9 Active 511660629 Problem Cough R05 Active 82598591 Problem Diabetes 250.00 Active 81264439 Problem Other viral agents as the cause of diseases classified elsewhere B97.89 Active 311869864 Problem Influenza with other respiratory manifestations 487.1 Active 2916509 Problem Nausea with vomiting 787.01 Active 43746879 Problem Abdominal pain, unspecified site 789.00 Active 22378519 Problem Trigger finger (acquired) 727.03 Active 5707808 Problem Hematuria, unspecified 599.70 Active 81598549 Problem Insomnia, unspecified 780.52 Active 686490092 Problem Dysuria 788.1 Active 82398479 Problem Dysphagia, unspecified 787.20 Active 72092628 ALLERGIES No Known Allergies SOCIAL HISTORY No smoking Hx information available PLAN OF CARE VITAL SIGNS MEDICATIONS No Known Medications RESULTS No Results PROCEDURES No Known procedures IMMUNIZATIONS No Known Immunizations
--- OUTSIDE RECORDS SUMMARY | 2017-03-16 08:34 | XMS REPORT | Continuity of Care Document ---
Author Author [facility] Address Unknown Phone Unavailable Allergies Active Description Code Type Severity Reaction Onset Reported/Identified Relationship to Patient Clinical Status Yes Cipro Drug Allergy N/A N/A 04/11/2014 Yes ciprofloxacin [id number] Drug Allergy Moderate N/V 04/12/2014 Yes ciprofloxacin HCl [id number] Drug Allergy Moderate N/V 04/12/2014 Yes amitriptyline 25 mg tablet Drug Allergy N/A N/A 09/10/2014 Yes metformin 500 mg tablet Drug Allergy N/A N/A 09/10/2014 Medications Problems Date Dx Coded Attending Type Code Diagnosis Diagnosed By 04/16/2008 KAM BRITO DO K 844.9 Sprain/strain Knee/leg 04/16/2008 844.9 Sprain/strain Knee/leg 04/16/2008 KAM BRITO DO K 844.9 Sprain/strain Knee/leg 04/16/2008 GOYO CAMP APRN 844.9 Sprain/strain Knee/leg 04/16/2008 KAM BRITO DO K 844.9 Sprain/strain Knee/leg 04/16/2008 WILL HAMMER APRN S 844.9 Sprain/strain Knee/leg 04/16/2008 KAM BRITO DO K 844.9 Sprain/strain Knee/leg 04/16/2008 APOLINAR ROMERO MD 844.9 Sprain/strain Knee/leg 04/16/2008 KAM BRITO DO K 844.9 Sprain/strain Knee/leg 04/16/2008 KAM BRITO DO K 844.9 Sprain/strain Knee/leg 04/16/2008 KAM BRITO DO K 844.9 Sprain/strain Knee/leg 04/16/2008 KAM BRITO DO K 844.9 Sprain/strain Knee/leg 04/16/2008 WILL HAMMER APRN S 844.9 Sprain/strain Knee/leg 04/16/2008 MALI ORDOÑEZ APRN T 844.9 Sprain/strain Knee/leg 02/20/2009 BRITO DO, KAM K 244.9 HYPOTHYROIDISM 02/20/2009 BRITO DO, KAM K 296.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 02/20/2009 BRITO DO, KAM K 780.79 Lethargy 02/20/2009 BRITO DO, KAM K 783.1 Recent Weight Gain From Overeating 02/20/2009 244.9 HYPOTHYROIDISM 02/20/2009 296.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 02/20/2009 780.79 Lethargy 02/20/2009 783.1 Recent Weight Gain From Overeating 02/20/2009 BRITO DO, KAM K 244.9 HYPOTHYROIDISM 02/20/2009 BRITO DO, KAM K 296.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 02/20/2009 BRITO DO, KAM K 780.79 Lethargy 02/20/2009 BRITO DO, KAM K 783.1 Recent Weight Gain From Overeating 02/20/2009 JUAN CAMP APRNCY N 244.9 HYPOTHYROIDISM 02/20/2009 RAMOSMAGALIS FAJARDO APRN GOYO N 296.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 02/20/2009 RAMOSJUAN SEARS APRNCY N 780.79 Lethargy 02/20/2009 JUAN CAMP APRNCY N 783.1 Recent Weight Gain From Overeating 02/20/2009 BRITO DO, KAM K 244.9 HYPOTHYROIDISM 02/20/2009 BRITO DO, KAM K 296.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 02/20/2009 BRITO DO, KAM K 780.79 Lethargy 02/20/2009 BRITO DO, KAM K 783.1 Recent Weight Gain From Overeating 02/20/2009 JAQUELIN PARK KEEPER WILL S 244.9 HYPOTHYROIDISM 02/20/2009 JAQUELIN PARK KEEPER, WILL S 296.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 02/20/2009 JAQUELIN PARK KEEPER, WILL S 780.79 Lethargy 02/20/2009 JAQUELIN PARK KEEPER, WILL S 783.1 Recent Weight Gain From Overeating 02/20/2009 BRITO DO, KAM K 244.9 HYPOTHYROIDISM 02/20/2009 BRITO DO, KAM K 296.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 02/20/2009 BRITO DO, KAM K 780.79 Lethargy 02/20/2009 BRITO DO, KMA K 783.1 Recent Weight Gain From Overeating 02/20/2009 APOLINAR ROMERO MD N 244.9 HYPOTHYROIDISM 02/20/2009 APOLINAR ROMERO MD N 296.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 02/20/2009 APOLINAR ROMERO MD N 780.79 Lethargy 02/20/2009 APOLINAR ROMERO MD N 783.1 Recent Weight Gain From Overeating 02/20/2009 BRITO DO, KAM K 244.9 HYPOTHYROIDISM 02/20/2009 BRITO DO, KAM K 296.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 02/20/2009 BRITO DO, KAM K 780.79 Lethargy 02/20/2009 BRITO DO, KAM K 783.1 Recent Weight Gain From Overeating 02/20/2009 BRITO DO, KAM K 244.9 HYPOTHYROIDISM 02/20/2009 BRITO DO, KAM K 296.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 02/20/2009 BRITO DO, KAM K 780.79 Lethargy 02/20/2009 BRITO DO, KAM K 783.1 Recent Weight Gain From Overeating 02/20/2009 BRITO DO, KAM K 244.9 HYPOTHYROIDISM 02/20/2009 BRITO DO, KAM K 296.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 02/20/2009 BRITO DO, KAM K 780.79 Lethargy 02/20/2009 BRITO DO, KAM K 783.1 Recent Weight Gain From Overeating 02/20/2009 BRITO DO, KAM K 244.9 HYPOTHYROIDISM 02/20/2009 BRITO DO, KAM K 296.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 02/20/2009 BRITO DO, KAM K 780.79 Lethargy 02/20/2009 BRITO DO, KAM K 783.1 Recent Weight Gain From Overeating 02/20/2009 JAQUELIN GRIFFITHS WILL S 244.9 HYPOTHYROIDISM 02/20/2009 DEBI HAMMER APRNNDA S 296.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 02/20/2009 JAQUELIN GRIFFITHS WILL S 780.79 Lethargy 02/20/2009 JAQUELIN GRIFFITHS WILL S 783.1 Recent Weight Gain From Overeating 02/20/2009 MALI ORDOÑEZ APRN 244.9 HYPOTHYROIDISM 02/20/2009 MALI ORDOÑEZ APRN 296.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 02/20/2009 MALI ORDOÑEZ APRN 780.79 Lethargy 02/20/2009 MALI ORDOÑEZ APRN 783.1 Recent Weight Gain From Overeating 03/04/2009 BRITO DO, KAM K 244.9 HYPOTHYROIDISM 03/04/2009 244.9 HYPOTHYROIDISM 03/04/2009 BRITO DO, KAM K 244.9 HYPOTHYROIDISM 03/04/2009 GOYO CAMP APRN N 244.9 HYPOTHYROIDISM 03/04/2009 BRITO DO, KAM K 244.9 HYPOTHYROIDISM 03/04/2009 NUSRAT HAMMER APRNA S 244.9 HYPOTHYROIDISM 03/04/2009 BRITO DO, KAM K 244.9 HYPOTHYROIDISM 03/04/2009 APOLINAR ROMERO MD 244.9 HYPOTHYROIDISM 03/04/2009 BRITO DO, KAM K 244.9 HYPOTHYROIDISM 03/04/2009 BRITO DO, KAM K 244.9 HYPOTHYROIDISM 03/04/2009 BRITO DO, KAM K 244.9 HYPOTHYROIDISM 03/04/2009 BRITO DO, KAM K 244.9 HYPOTHYROIDISM 03/04/2009 NUSRAT HAMMER APRNA S 244.9 HYPOTHYROIDISM 03/04/2009 MALI ORDOÑEZ APRN 244.9 HYPOTHYROIDISM 03/07/2009 BRITO DO, KAM K 251.1 HYPERINSULINISM EXOGENOUS 03/07/2009 251.1 HYPERINSULINISM EXOGENOUS 03/07/2009 BRITO DO, KAM K 251.1 HYPERINSULINISM EXOGENOUS 03/07/2009 GOYO CAMP APRN N 251.1 HYPERINSULINISM EXOGENOUS 03/07/2009 BRITO DO, KAM K 251.1 HYPERINSULINISM EXOGENOUS 03/07/2009 WILL HAMMER APRN S 251.1 HYPERINSULINISM EXOGENOUS 03/07/2009 BRITO DO, KAM K 251.1 HYPERINSULINISM EXOGENOUS 03/07/2009 APOLINAR ROMERO MD 251.1 HYPERINSULINISM EXOGENOUS 03/07/2009 BRITO DO, KAM K 251.1 HYPERINSULINISM EXOGENOUS 03/07/2009 BRITO DO, KAM K 251.1 HYPERINSULINISM EXOGENOUS 03/07/2009 BRITO DO, KAM K 251.1 HYPERINSULINISM EXOGENOUS 03/07/2009 BRITO DO, KAM K 251.1 HYPERINSULINISM EXOGENOUS 03/07/2009 WILL HAMMER APRN S 251.1 HYPERINSULINISM EXOGENOUS 03/07/2009 TIAGO PARK KEEPER, MALI T 251.1 HYPERINSULINISM EXOGENOUS 04/01/2010 BRITO DO, KAM K 574.20 Calculus Of Gallbladder Without Mention Of Cholecystitis, Without Mention Of Obstruction 04/01/2010 BRITO DO, KAM K 592.1 Calculus Of Ureter 04/01/2010 BRITO DO, KAM K 788.63 Urinary Urgency 04/01/2010 574.20 Calculus Of Gallbladder Without Mention Of Cholecystitis, Without Mention Of Obstruction 04/01/2010 592.1 Calculus Of Ureter 04/01/2010 788.63 Urinary Urgency 04/01/2010 BRITO DO, KAM K 574.20 Calculus Of Gallbladder Without Mention Of Cholecystitis, Without Mention Of Obstruction 04/01/2010 BRITO DO, KAM K 592.1 Calculus Of Ureter 04/01/2010 BRITO DO, KAM K 788.63 Urinary Urgency 04/01/2010 RAMOS CASHERO PARK KEEPER, GOYO N 574.20 Calculus Of Gallbladder Without Mention Of Cholecystitis, Without Mention Of Obstruction 04/01/2010 RAMOS CASHERO PARK KEEPER, GOYO N 592.1 Calculus Of Ureter 04/01/2010 RAMOS CASHERO PARK KEEPER, GOYO N 788.63 Urinary Urgency 04/01/2010 BRITO DO, KAM K 574.20 Calculus Of Gallbladder Without Mention Of Cholecystitis, Without Mention Of Obstruction 04/01/2010 BRITO DO, KAM K 592.1 Calculus Of Ureter 04/01/2010 BRITO DO, KAM K 788.63 Urinary Urgency 04/01/2010 JAQUELIN PARK KEEPER, WILL S 574.20 Calculus Of Gallbladder Without Mention Of Cholecystitis, Without Mention Of Obstruction 04/01/2010 JAQUELIN PARK KEEPER, WILL S 592.1 Calculus Of Ureter 04/01/2010 JAQUELIN PARK KEEPER, WILL S 788.63 Urinary Urgency 04/01/2010 BRITO DO, KAM K 574.20 Calculus Of Gallbladder Without Mention Of Cholecystitis, Without Mention Of Obstruction 04/01/2010 BRITO DO, KAM K 592.1 Calculus Of Ureter 04/01/2010 ALISHA CALDWELL KAM K 788.63 Urinary Urgency 04/01/2010 APOLINAR ROMERO MD N 574.20 Calculus Of Gallbladder Without Mention Of Cholecystitis, Without Mention Of Obstruction 04/01/2010 APOLINAR ROMERO MD N 592.1 Calculus Of Ureter 04/01/2010 APOLINAR ROMERO MD N 788.63 Urinary Urgency 04/01/2010 BRITO DO KAM K 574.20 Calculus Of Gallbladder Without Mention Of Cholecystitis, Without Mention Of Obstruction 04/01/2010 BRITO DO KAM K 592.1 Calculus Of Ureter 04/01/2010 BRITO DO KAM K 788.63 Urinary Urgency 04/01/2010 BRITO DO KAM K 574.20 Calculus Of Gallbladder Without Mention Of Cholecystitis, Without Mention Of Obstruction 04/01/2010 BRITO DO KAM K 592.1 Calculus Of Ureter 04/01/2010 BRITO DO KAM K 788.63 Urinary Urgency 04/01/2010 BRITO DO KAM K 574.20 Calculus Of Gallbladder Without Mention Of Cholecystitis, Without Mention Of Obstruction 04/01/2010 BRITO DO KAM K 592.1 Calculus Of Ureter 04/01/2010 BRITO DO KAM K 788.63 Urinary Urgency 04/01/2010 BRITO DO KAM K 574.20 Calculus Of Gallbladder Without Mention Of Cholecystitis, Without Mention Of Obstruction 04/01/2010 BRITO DO KAM K 592.1 Calculus Of Ureter 04/01/2010 BRITO , KAM K 788.63 Urinary Urgency 04/01/2010 WILL HAMMER APRN S 574.20 Calculus Of Gallbladder Without Mention Of Cholecystitis, Without Mention Of Obstruction 04/01/2010 WILL HAMMER APRN S 592.1 Calculus Of Ureter 04/01/2010 DEBI HAMMER APRNNDA S 788.63 Urinary Urgency 04/01/2010 MALI ORDOÑEZ APRN 574.20 Calculus Of Gallbladder Without Mention Of Cholecystitis, Without Mention Of Obstruction 04/01/2010 MALI ORDOÑEZ APRN 592.1 Calculus Of Ureter 04/01/2010 MALI ORDOÑEZ APRN 788.63 Urinary Urgency 08/08/2010 BRITO DO KAM K 300.00 ANXIETY UNSPEC 08/08/2010 BRITO DO, KAM K 401.1 ESSENTIAL HYPERTENSION BENIGN 08/08/2010 300.00 ANXIETY UNSPEC 08/08/2010 401.1 ESSENTIAL HYPERTENSION BENIGN 08/08/2010 BRITO DO, KAM K 300.00 ANXIETY UNSPEC 08/08/2010 BRITO DO, KAM K 401.1 ESSENTIAL HYPERTENSION BENIGN 08/08/2010 RACHEL FAJARDO PARK KEEPER, GOYO N 300.00 ANXIETY UNSPEC 08/08/2010 RACHEL FAJARDO PARK KEEPER, GOYO N 401.1 ESSENTIAL HYPERTENSION BENIGN 08/08/2010 BRITO DO, KAM K 300.00 ANXIETY UNSPEC 08/08/2010 BRITO DO, KAM K 401.1 ESSENTIAL HYPERTENSION BENIGN 08/08/2010 JAQUELIN VALDEZN, WILL S 300.00 ANXIETY UNSPEC 08/08/2010 JAQUELIN VALDEZN, WILL S 401.1 ESSENTIAL HYPERTENSION BENIGN 08/08/2010 BRITO DO, KAM K 300.00 ANXIETY UNSPEC 08/08/2010 BRITO DO, KAM K 401.1 ESSENTIAL HYPERTENSION BENIGN 08/08/2010 APOLINAR ROMERO MD N 300.00 ANXIETY UNSPEC 08/08/2010 APOLINAR ROMERO MD N 401.1 ESSENTIAL HYPERTENSION BENIGN 08/08/2010 BRITO DO, KAM K 300.00 ANXIETY UNSPEC 08/08/2010 BRITO DO, KAM K 401.1 ESSENTIAL HYPERTENSION BENIGN 08/08/2010 BRITO DO, KAM K 300.00 ANXIETY UNSPEC 08/08/2010 BRITO DO, KAM K 401.1 ESSENTIAL HYPERTENSION BENIGN 08/08/2010 BRITO DO, KAM K 300.00 ANXIETY UNSPEC 08/08/2010 BRITO DO, KAM K 401.1 ESSENTIAL HYPERTENSION BENIGN 08/08/2010 BRITO DO, KAM K 300.00 ANXIETY UNSPEC 08/08/2010 BRITO DO, KAM K 401.1 ESSENTIAL HYPERTENSION BENIGN 08/08/2010 DEBI HAMMER APRNNDA S 300.00 ANXIETY UNSPEC 08/08/2010 JAQUELIN GRIFFITHS, WILL S 401.1 ESSENTIAL HYPERTENSION BENIGN 08/08/2010 MALI ORDOÑEZ APRN 300.00 ANXIETY UNSPEC 08/08/2010 MALI ORDOÑEZ APRN 401.1 ESSENTIAL HYPERTENSION BENIGN 03/26/2011 BRITO DO, KAM K 564.00 Unspecified Constipation 03/26/2011 BRITO DO, KAM K 720.2 SACROILIITIS NOT ELSEWHERE CLASSIFIED 03/26/2011 564.00 Unspecified Constipation 03/26/2011 720.2 SACROILIITIS NOT ELSEWHERE CLASSIFIED 03/26/2011 BRITO DO, KAM K 564.00 Unspecified Constipation 03/26/2011 BRITO DO, KAM K 720.2 SACROILIITIS NOT ELSEWHERE CLASSIFIED 03/26/2011 RAMOS BONILLAERO PARK KEEPER, GOYO N 564.00 Unspecified Constipation 03/26/2011 RAMOS CASHERO PARK KEEPER, GOYO N 720.2 SACROILIITIS NOT ELSEWHERE CLASSIFIED 03/26/2011 BRITO DO, KAM K 564.00 Unspecified Constipation 03/26/2011 BRITO DO, KAM K 720.2 SACROILIITIS NOT ELSEWHERE CLASSIFIED 03/26/2011 JAQUELIN PARK KEEPER, WILL S 564.00 Unspecified Constipation 03/26/2011 JAQUELIN PARK KEEPER, WILL S 720.2 SACROILIITIS NOT ELSEWHERE CLASSIFIED 03/26/2011 BRITO DO, KAM K 564.00 Unspecified Constipation 03/26/2011 BRITO DO, KAM K 720.2 SACROILIITIS NOT ELSEWHERE CLASSIFIED 03/26/2011 HEATHER MIRZA, APOLINAR N 564.00 Unspecified Constipation 03/26/2011 APOLINAR ROMERO MD N 720.2 SACROILIITIS NOT ELSEWHERE CLASSIFIED 03/26/2011 BRITO DO, KAM K 564.00 Unspecified Constipation 03/26/2011 BRITO DO, KAM K 720.2 SACROILIITIS NOT ELSEWHERE CLASSIFIED 03/26/2011 BRITO DO, KAM K 564.00 Unspecified Constipation 03/26/2011 BRITO DO, KAM K 720.2 SACROILIITIS NOT ELSEWHERE CLASSIFIED 03/26/2011 BRITO DO, KAM K 564.00 Unspecified Constipation 03/26/2011 BRITO DO, KAM K 720.2 SACROILIITIS NOT ELSEWHERE CLASSIFIED 03/26/2011 BRITO DO, KAM K 564.00 Unspecified Constipation 03/26/2011 BRITO DO, KAM K 720.2 SACROILIITIS NOT ELSEWHERE CLASSIFIED 03/26/2011 JAQUELIN PARK KEEPER, WILL S 564.00 Unspecified Constipation 03/26/2011 JAQUELIN PARK KEEPER, WILL S 720.2 SACROILIITIS NOT ELSEWHERE CLASSIFIED 03/26/2011 MALI ORDOÑEZ APRN T 564.00 Unspecified Constipation 03/26/2011 MALI ORDOÑEZ APRN 720.2 SACROILIITIS NOT ELSEWHERE CLASSIFIED 08/18/2011 BRITO DO, KAM K 278.00 OBESITY UNSPECIFIED 08/18/2011 BRITO DO, KAM K 724.2 BACK PAIN, LOWER 08/18/2011 278.00 OBESITY UNSPECIFIED 08/18/2011 724.2 BACK PAIN, LOWER 08/18/2011 BRITO DO, KAM K 278.00 OBESITY UNSPECIFIED 08/18/2011 BRITO DO, KAM K 724.2 BACK PAIN, LOWER 08/18/2011 RAMOS CASHERO PARK KEEPER, GOYO N 278.00 OBESITY UNSPECIFIED 08/18/2011 RAMOS CASHERO PARK KEEPER, GOYO N 724.2 BACK PAIN, LOWER 08/18/2011 BRITO DO, KAM K 278.00 OBESITY UNSPECIFIED 08/18/2011 BRITO DO, KAM K 724.2 BACK PAIN, LOWER 08/18/2011 JAQUELIN PARK KEEPER, WILL S 278.00 OBESITY UNSPECIFIED 08/18/2011 JAQUELIN PARK KEEPER, WILL S 724.2 BACK PAIN, LOWER 08/18/2011 BRITO DO, KAM K 278.00 OBESITY UNSPECIFIED 08/18/2011 BRITO DO, KAM K 724.2 BACK PAIN, LOWER 08/18/2011 HEATHER MIRZA, APOLINAR N 278.00 OBESITY UNSPECIFIED 08/18/2011 HEATHER MIRZA, APOLINAR N 724.2 BACK PAIN, LOWER 08/18/2011 BRITO DO, KAM K 278.00 OBESITY UNSPECIFIED 08/18/2011 BRITO DO, KAM K 724.2 BACK PAIN, LOWER 08/18/2011 BRITO DO, KAM K 278.00 OBESITY UNSPECIFIED 08/18/2011 BRITO DO, KAM K 724.2 BACK PAIN, LOWER 08/18/2011 BRITO DO, KAM K 278.00 OBESITY UNSPECIFIED 08/18/2011 BRITO DO, KAM K 724.2 BACK PAIN, LOWER 08/18/2011 BRITO DO, KAM K 278.00 OBESITY UNSPECIFIED 08/18/2011 BRITO DO, KAM K 724.2 BACK PAIN, LOWER 08/18/2011 JAQUELIN PARK KEEPER, WILL S 278.00 OBESITY UNSPECIFIED 08/18/2011 JAQUELIN PARK KEEPER, WILL S 724.2 BACK PAIN, LOWER 08/18/2011 MALI ORDOÑEZ APRN T 278.00 OBESITY UNSPECIFIED 08/18/2011 MALI ORDOÑEZ APRN 724.2 BACK PAIN, LOWER 03/29/2012 Ot 599.0 URIN TRACT INFECTION NOS 03/29/2012 Ot 789.00 ABDOMINAL PAIN, UNSPECIFIED SITE 11/29/2012 BRITO DO, KAM K 719.44 joint pain fingers 11/29/2012 719.44 joint pain fingers 11/29/2012 BRITO DO, KAM K 719.44 joint pain fingers 11/29/2012 GOYO CAMP APRN N 719.44 joint pain fingers 11/29/2012 BRITO DO, KAM K 719.44 joint pain fingers 11/29/2012 WILL HAMMER APRN S 719.44 joint pain fingers 11/29/2012 BRITO DO, KAM K 719.44 joint pain fingers 11/29/2012 APOLINAR ROMERO MD 719.44 joint pain fingers 11/29/2012 BRITO DO, KAM K 719.44 joint pain fingers 11/29/2012 BRITO DO, KAM K 719.44 joint pain fingers 11/29/2012 BRITO DO, KAM K 719.44 joint pain fingers 11/29/2012 BRITO DO, KAM K 719.44 joint pain fingers 11/29/2012 WILL HAMMER APRN S 719.44 joint pain fingers 11/29/2012 MALI ORDOÑEZ APRN 719.44 joint pain fingers 01/26/2013 727.03 TRIGGER FINGER (ACQUIRED) 01/26/2013 BRITO DO, KAM K 727.03 TRIGGER FINGER (ACQUIRED) 01/26/2013 GOYO CAMP APRN N 727.03 TRIGGER FINGER (ACQUIRED) 01/26/2013 BRITO DO, KAM K 727.03 TRIGGER FINGER (ACQUIRED) 01/26/2013 WILL HAMMER APRN S 727.03 TRIGGER FINGER (ACQUIRED) 01/26/2013 BRITO DO, KAM K 727.03 TRIGGER FINGER (ACQUIRED) 01/26/2013 APOLINAR ROMERO MD 727.03 TRIGGER FINGER (ACQUIRED) 01/26/2013 BRITO DO, KAM K 727.03 TRIGGER FINGER (ACQUIRED) 01/26/2013 BRITO DO, KAM K 727.03 TRIGGER FINGER (ACQUIRED) 01/26/2013 BRITO DO, KAM K 727.03 TRIGGER FINGER (ACQUIRED) 01/26/2013 BRITO DO, KAM K 727.03 TRIGGER FINGER (ACQUIRED) 01/26/2013 WILL HAMMER APRN 727.03 TRIGGER FINGER (ACQUIRED) 01/26/2013 MALI ORDOÑEZ APRN 727.03 TRIGGER FINGER (ACQUIRED) 06/13/2013 KAM BRITO DO K V15.81 PERSONAL HISTORY OF NONCOMPLIANCE WITH MEDICAL TREATMENT PRESENTING HAZARDS TO HEALTH 06/13/2013 GOYO CAMP APRN N V15.81 PERSONAL HISTORY OF NONCOMPLIANCE WITH MEDICAL TREATMENT PRESENTING HAZARDS TO HEALTH 06/13/2013 KAM BRITO DO K V15.81 PERSONAL HISTORY OF NONCOMPLIANCE WITH MEDICAL TREATMENT PRESENTING HAZARDS TO HEALTH 06/13/2013 WILL HAMMER APRN V15.81 PERSONAL HISTORY OF NONCOMPLIANCE WITH MEDICAL TREATMENT PRESENTING HAZARDS TO HEALTH 06/13/2013 KAM BRITO DO K V15.81 PERSONAL HISTORY OF NONCOMPLIANCE WITH MEDICAL TREATMENT PRESENTING HAZARDS TO HEALTH 06/13/2013 APOLINAR ROMERO MD N V15.81 PERSONAL HISTORY OF NONCOMPLIANCE WITH MEDICAL TREATMENT PRESENTING HAZARDS TO HEALTH 06/13/2013 KAM BRITO DO K V15.81 PERSONAL HISTORY OF NONCOMPLIANCE WITH MEDICAL TREATMENT PRESENTING HAZARDS TO HEALTH 06/13/2013 MIQUEL BRITO DOA K V15.81 PERSONAL HISTORY OF NONCOMPLIANCE WITH MEDICAL TREATMENT PRESENTING HAZARDS TO HEALTH 06/13/2013 KAM BRITO DO K V15.81 PERSONAL HISTORY OF NONCOMPLIANCE WITH MEDICAL TREATMENT PRESENTING HAZARDS TO HEALTH 06/13/2013 MIQUEL BRITO DOA K V15.81 PERSONAL HISTORY OF NONCOMPLIANCE WITH MEDICAL TREATMENT PRESENTING HAZARDS TO HEALTH 06/13/2013 WILL HAMMER APRN V15.81 PERSONAL HISTORY OF NONCOMPLIANCE WITH MEDICAL TREATMENT PRESENTING HAZARDS TO HEALTH 06/13/2013 MALI ORDOÑEZ APRN V15.81 PERSONAL HISTORY OF NONCOMPLIANCE WITH MEDICAL TREATMENT PRESENTING HAZARDS TO HEALTH 10/30/2013 GOYO CAMP APRN 787.01 NAUSEA WITH VOMITING 10/30/2013 GOYO CAMP APRN 787.91 DIARRHEA 10/30/2013 KAM BRITO DO K 787.01 NAUSEA WITH VOMITING 10/30/2013 KAM BRITO DO K 787.91 DIARRHEA 10/30/2013 JAQUELIN PARK KEEPER, WILL S 787.01 NAUSEA WITH VOMITING 10/30/2013 WILL HAMMER APRN S 787.91 DIARRHEA 10/30/2013 BRITO DO, KAM K 787.01 NAUSEA WITH VOMITING 10/30/2013 BRITO DO, KAM K 787.91 DIARRHEA 10/30/2013 APOLINAR ROMERO MD 787.01 NAUSEA WITH VOMITING 10/30/2013 APOLINAR ROMERO MD 787.91 DIARRHEA 10/30/2013 BRITO DO, KAM K 787.01 NAUSEA WITH VOMITING 10/30/2013 BRITO DO, KAM K 787.91 DIARRHEA 10/30/2013 BRITO DO, KAM K 787.01 NAUSEA WITH VOMITING 10/30/2013 BRITO DO, KAM K 787.91 DIARRHEA 10/30/2013 BRITO DO, KAM K 787.01 NAUSEA WITH VOMITING 10/30/2013 BRITO DO, KAM K 787.91 DIARRHEA 10/30/2013 BRITO DO, KAM K 787.01 NAUSEA WITH VOMITING 10/30/2013 BRITO DO, KAM K 787.91 DIARRHEA 10/30/2013 WILL HAMMER APRN S 787.01 NAUSEA WITH VOMITING 10/30/2013 NUSRAT HAMMER APRNA S 787.91 DIARRHEA 10/30/2013 MALI ORDOÑEZ APRN 787.01 NAUSEA WITH VOMITING 10/30/2013 MALI ORDOÑEZ APRN 787.91 DIARRHEA 04/12/2014 SHIRLEY MANCINI MD Ot 244.9 HYPOTHYROIDISM NOS 04/12/2014 SHIRLEY MANCINI MD Ot 250.00 DIAB DAMIEN WO COMPL, TYPE II OR UNSPEC TY 04/12/2014 SHIRLEY MANCINI MD Ot 278.00 OBESITY, NOS 04/12/2014 SHIRLEY MANCINI MD Ot 401.9 HYPERTENSION NOS 04/12/2014 SHIRLEY MANCINI MD Ot 786.59 CHEST PAIN NEC 04/12/2014 SHIRLEY MANCINI MD Ot V17.3 FAM HX-ISCHEM HEART DIS 04/12/2014 SHIRLEY MANCINI MD Ot V85.41 BODY MASS INDEX 40.0-44.9, ADULT 04/23/2014 BRITO DO, KAM K 780.52 INSOMNIA UNSPECIFIED 04/23/2014 BRITO DO, KAM K 786.50 CHEST PAIN 04/23/2014 BRITO DO, KAM K 787.20 DYSPHAGIA UNSPECIFIED 04/23/2014 BRITO DO, KAM K 848.9 UNSPECIFIED SITE OF SPRAIN AND STRAIN 04/23/2014 BRITO DO, KAM K V58.69 HIGH RISK MEDICATION 04/23/2014 HEATHER MRIZA, APOLINAR N 780.52 INSOMNIA UNSPECIFIED 04/23/2014 HEATHER MIRZA, APOLINAR N 786.50 CHEST PAIN 04/23/2014 HEATHER MIRZA, APOLINAR N 787.20 DYSPHAGIA UNSPECIFIED 04/23/2014 HEATHER MIRZA, APOLINAR N 848.9 UNSPECIFIED SITE OF SPRAIN AND STRAIN 04/23/2014 HEATHER MIRZA, APOLINAR N V58.69 HIGH RISK MEDICATION 04/23/2014 BRITO DO, KAM K 780.52 INSOMNIA UNSPECIFIED 04/23/2014 BRITO DO, KAM K 786.50 CHEST PAIN 04/23/2014 BRITO DO, KAM K 787.20 DYSPHAGIA UNSPECIFIED 04/23/2014 BRITO DO, KAM K 848.9 UNSPECIFIED SITE OF SPRAIN AND STRAIN 04/23/2014 BRITO DO, KAM K V58.69 HIGH RISK MEDICATION 04/23/2014 BRITO DO, KAM K 780.52 INSOMNIA UNSPECIFIED 04/23/2014 BRITO DO, KAM K 786.50 CHEST PAIN 04/23/2014 BRITO DO, KAM K 787.20 DYSPHAGIA UNSPECIFIED 04/23/2014 BRITO DO, KAM K 848.9 UNSPECIFIED SITE OF SPRAIN AND STRAIN 04/23/2014 BRITO DO, KAM K V58.69 HIGH RISK MEDICATION 04/23/2014 BRITO DO, KAM K 780.52 INSOMNIA UNSPECIFIED 04/23/2014 BRITO DO, KAM K 786.50 CHEST PAIN 04/23/2014 BRITO DO, KAM K 787.20 DYSPHAGIA UNSPECIFIED 04/23/2014 BRITO DO, KAM K 848.9 UNSPECIFIED SITE OF SPRAIN AND STRAIN 04/23/2014 BRITO DO, KAM K V58.69 HIGH RISK MEDICATION 04/23/2014 BRITO DO, KAM K 780.52 INSOMNIA UNSPECIFIED 04/23/2014 BRITO DO, KAM K 786.50 CHEST PAIN 04/23/2014 BRITO DO, KAM K 787.20 DYSPHAGIA UNSPECIFIED 04/23/2014 BRITO DO, KAM K 848.9 UNSPECIFIED SITE OF SPRAIN AND STRAIN 04/23/2014 BRITO DO, KAM K V58.69 HIGH RISK MEDICATION 04/23/2014 JAQUELIN PARK KEEPERDEBI McclureNDA S 780.52 INSOMNIA UNSPECIFIED 04/23/2014 JAQUELIN PARK KEEPER, WILL S 786.50 CHEST PAIN 04/23/2014 JAQUELIN PARK KEEPER, WILL S 787.20 DYSPHAGIA UNSPECIFIED 04/23/2014 JAQUELIN PARK KEEPERDEBIWILL S 848.9 UNSPECIFIED SITE OF SPRAIN AND STRAIN 04/23/2014 JAQUELIN PARK KEEPER WILL S V58.69 HIGH RISK MEDICATION 04/23/2014 MALI ORDOÑEZ APRN T 780.52 INSOMNIA UNSPECIFIED 04/23/2014 MALI ORDOÑEZ APRN 786.50 CHEST PAIN 04/23/2014 MALI ORDOÑEZ APRN 787.20 DYSPHAGIA UNSPECIFIED 04/23/2014 MALI ORDOÑEZ APRN 848.9 UNSPECIFIED SITE OF SPRAIN AND STRAIN 04/23/2014 MALI ORDOÑEZ APRN V58.69 HIGH RISK MEDICATION 05/10/2014 HEATHER MIRZA, APOLINAR N 592.0 CALCULUS OF KIDNEY 05/10/2014 BRITO DO, KAM K 592.0 CALCULUS OF KIDNEY 05/10/2014 BRITO DO, KAM K 592.0 CALCULUS OF KIDNEY 05/10/2014 BRITO DO, KAM K 592.0 CALCULUS OF KIDNEY 05/10/2014 BRITO DO, KAM K 592.0 CALCULUS OF KIDNEY 05/10/2014 NUSRAT HAMMER APRNA S 592.0 CALCULUS OF KIDNEY 05/10/2014 MALI ORDOÑEZ APRN 592.0 CALCULUS OF KIDNEY 05/29/2014 BRITO DO, KAM K 599.70 HEMATURIA UNSPECIFIED 05/29/2014 BRITO DO, KAM K 788.1 DYSURIA 05/29/2014 BRITO DO, KAM K 789.00 ABDOMINAL PAIN UNSPECIFIED SITE 05/29/2014 BRITO DO, KAM K 599.70 HEMATURIA UNSPECIFIED 05/29/2014 BRITO DO, KAM K 788.1 DYSURIA 05/29/2014 BRITO DO, KAM K 789.00 ABDOMINAL PAIN UNSPECIFIED SITE 05/29/2014 BRITO DO, KAM K 599.70 HEMATURIA UNSPECIFIED 05/29/2014 BRITO DO, KAM K 788.1 DYSURIA 05/29/2014 BRITO DO, KAM K 789.00 ABDOMINAL PAIN UNSPECIFIED SITE 05/29/2014 BRITO DO, KAM K 599.70 HEMATURIA UNSPECIFIED 05/29/2014 BRITO DO, KAM K 788.1 DYSURIA 05/29/2014 BRITO DO, KAM K 789.00 ABDOMINAL PAIN UNSPECIFIED SITE 05/29/2014 WILL HAMMER APRN S 599.70 HEMATURIA UNSPECIFIED 05/29/2014 NUSRAT HAMMER APRNA S 788.1 DYSURIA 05/29/2014 WILL HAMMER APRN S 789.00 ABDOMINAL PAIN UNSPECIFIED SITE 05/29/2014 MALI ORDOÑEZ APRN 599.70 HEMATURIA UNSPECIFIED 05/29/2014 MALI ORDOÑEZ APRN 788.1 DYSURIA 05/29/2014 MALI ORDOÑEZ APRN 789.00 ABDOMINAL PAIN UNSPECIFIED SITE 07/26/2014 SUJATA MIRZA, GEOFFREY Belle Ot 592.9 08/10/2014 RALPH PA, EVIE M Ot 787.20 08/10/2014 RALPH PA, EVIE M Ot 571.8 08/10/2014 RALPH PA, EVIE M Ot 574.20 08/10/2014 RALPH PA, EVIE M Ot 592.0 08/10/2014 GEOFFREY ERNST MD Ot 592.9 08/10/2014 RALPH PA, EVIE M Ot 787.20 08/21/2014 RALPH PA, EVIE M Ot 787.20 08/21/2014 RALPH PA, EVIE M Ot 571.8 08/21/2014 RALPH PA, EVIE M Ot 574.20 08/21/2014 RALPH PA, EVIE M Ot 592.0 08/21/2014 GEOFFREY ERNST MD Ot 592.9 09/11/2014 GEOFFREY ERNST MD Ot 592.9 URINARY CALCULUS NOS 10/30/2014 WILL HAMMER APRN S 487.1 INFLUENZA WITH OTHER RESPIRATORY MANIFESTATIONS 10/30/2014 MALI ORDOÑEZ APRN T 487.1 INFLUENZA WITH OTHER RESPIRATORY MANIFESTATIONS 12/13/2014 WILL HAMMER APRN S 724.3 SCIATICA 12/13/2014 JAQUELINAVA VALDEZNWILL S 782.3 EDEMA 12/13/2014 [employer] KEEPER, MALI T 724.3 SCIATICA 12/13/2014 [employer] KEEPER, MALI T 782.3 EDEMA 01/04/2015 ROSAS PA, EVIE M Ot 787.20 01/04/2015 ROSAS PA, EVIE M Ot 571.8 01/04/2015 ROSAS PA, EVIE M Ot 574.20 01/04/2015 ROSAS PA, EVIE M Ot 592.0 01/04/2015 SUJATA MIRZA, GEOFFREY A Ot 592.9 11/06/2015 ROSAS PA, EVIE M Ot 787.20 11/06/2015 ROSAS PA, EVIE M Ot 571.8 11/06/2015 ROSAS PA, EVIE M Ot 574.20 11/06/2015 ROSAS PA, EVIE M Ot 592.0 11/06/2015 SUJATA MIRZA, GEOFFREY Belle Ot 592.9 11/06/2015 SUJATA MIRZA, GEOFFREY A Ot 592.9 11/13/2015 KEVIN MOSES MD, Ot E03.9 HYPOTHYROIDISM, UNSPECIFIED 11/13/2015 KEVIN MOSES MD Ot M19.012 PRIMARY OSTEOARTHRITIS, LEFT SHOULDER 11/13/2015 KEVIN MOSES MD Ot M75.102 UNSP ROTATR-CUFF TEAR/RUPTR OF LEFT SHOU 11/13/2015 KEVIN MOSES MD Ot R73.09 OTHER ABNORMAL GLUCOSE 11/13/2015 KEVIN MOSES MD Ot S43.432A SUPERIOR GLENOID LABRUM LESION OF LEFT S 11/13/2015 KEVIN MOSES MD Ot Z79.899 OTHER CARE HOME (CURRENT) DRUG THERAPY 12/13/2015 KEVIN MOSES MD Ot M75.102 12/18/2015 KEVIN MOSES MD Ot M75.102 01/24/2016 KEVIN MOSES MD Ot M75.102 UNSP ROTATR-CUFF TEAR/RUPTR OF LEFT SHOU 02/12/2016 KEVIN MOSES MD Ot M75.102 UNSP ROTATR-CUFF TEAR/RUPTR OF LEFT SHOU 02/13/2016 KEVIN MOSES MD Ot M75.102 UNSP ROTATR-CUFF TEAR/RUPTR OF LEFT SHOU 06/05/2016 MALI ORDOÑEZ Ot K80.20 CALCULUS OF GALLBLADDER W/O CHOLECYSTITI 06/12/2016 GEOFFREY ERNST MD Ot R31.0 GROSS HEMATURIA 06/16/2016 MALI ORDOÑEZ Ot K80.20 CALCULUS OF GALLBLADDER W/O CHOLECYSTITI 06/16/2016 GEOFFREY ERNST MD Ot R31.0 GROSS HEMATURIA 06/16/2016 GEOFFREY ERNST MD Ot R31.0 GROSS HEMATURIA 06/16/2016 EVIE MUHAMMAD M Ot 787.20 DYSPHAGIA, UNSPECIFIED 06/16/2016 EVIE MUHAMMAD M Ot 571.8 CHRONIC LIVER DIS NEC 06/16/2016 EVIE MUHAMMAD M Ot 574.20 CHOLELITHIASIS NOS 06/16/2016 EVIE MUHAMMAD M Ot 592.0 CALCULUS OF KIDNEY 06/16/2016 GEOFFREY ERNST MD Ot 592.9 URINARY CALCULUS NOS 06/16/2016 KEVIN MOSSE MD Ot M19.012 PRIMARY OSTEOARTHRITIS, LEFT SHOULDER 06/16/2016 KEVIN MOSES MD Ot M75.102 UNSP ROTATR-CUFF TEAR/RUPTR OF LEFT SHOU 06/16/2016 KEVIN MOSES MD Ot M75.82 OTHER SHOULDER LESIONS, LEFT SHOULDER 06/16/2016 KEVIN MOSES MD Ot Z01.818 ENCOUNTER FOR OTHER PREPROCEDURAL EXAMIN 06/16/2016 KEVIN MOSES MD Ot Z11.2 ENCOUNTER FOR SCREENING FOR OTHER BACTER 06/16/2016 MALI ORDOÑEZ Ot K80.20 CALCULUS OF GALLBLADDER W/O CHOLECYSTITI 06/16/2016 GEOFFREY ERNST MD Ot R31.0 GROSS HEMATURIA 06/17/2016 EVIE MUHAMMAD M Ot 787.20 DYSPHAGIA, UNSPECIFIED 06/17/2016 EVIE MUHAMMAD M Ot 571.8 CHRONIC LIVER DIS NEC 06/17/2016 EVIE MUHAMMAD M Ot 574.20 CHOLELITHIASIS NOS 06/17/2016 EVIE MUHAMMAD M Ot 592.0 CALCULUS OF KIDNEY 06/17/2016 GEOFFREY ERNST MD Ot 592.9 URINARY CALCULUS NOS 06/17/2016 JOSUÉ MIRZA, KEVIN Brower Ot M19.012 PRIMARY OSTEOARTHRITIS, LEFT SHOULDER 06/17/2016 KEVIN MOSES MD Ot M75.102 UNSP ROTATR-CUFF TEAR/RUPTR OF LEFT SHOU 06/17/2016 KEVIN MOSES MD Ot M75.82 OTHER SHOULDER LESIONS, LEFT SHOULDER 06/17/2016 KEVIN MOSES MD Ot Z01.818 ENCOUNTER FOR OTHER PREPROCEDURAL EXAMIN 06/17/2016 KEVIN MOSES MD Ot Z11.2 ENCOUNTER FOR SCREENING FOR OTHER BACTER 06/17/2016 MALI ORDOÑEZP Ot K80.20 CALCULUS OF GALLBLADDER W/O CHOLECYSTITI 06/17/2016 GEOFFREY ERNST MD Ot R31.0 GROSS HEMATURIA 06/17/2016 GEOFFREY ERNST MD Ot R31.0 GROSS HEMATURIA 06/17/2016 GEOFFREY ERNST MD Ot R31.0 GROSS HEMATURIA 06/17/2016 MALI ORDOÑEZP Ot K80.20 CALCULUS OF GALLBLADDER W/O CHOLECYSTITI 06/17/2016 GEOFFREY ERNST MD Ot N20.1 CALCULUS OF URETER 06/17/2016 GEOFFREY ERNST MD Ot Z11.2 ENCOUNTER FOR SCREENING FOR OTHER BACTER 06/17/2016 GEOFFREY ERNST MD Ot N20.1 CALCULUS OF URETER 06/18/2016 GEOFFREY ERNST MD Ot N20.1 CALCULUS OF URETER 06/18/2016 GEOFFREY ERNST MD Ot Z11.2 ENCOUNTER FOR SCREENING FOR OTHER BACTER 06/19/2016 GEOFFREY ERNST MD Ot N20.1 CALCULUS OF URETER 06/19/2016 GEOFFREY ERNST MD Ot Z11.2 ENCOUNTER FOR SCREENING FOR OTHER BACTER 06/25/2016 GEOFFREY ERNST MD Ot R31.0 GROSS HEMATURIA 07/02/2016 GEOFFREY ERNST MD Ot N20.1 CALCULUS OF URETER 07/08/2016 GEOFFREY ERNST MD Ot N20.1 CALCULUS OF URETER 07/08/2016 GEOFFREY ERNST MD Ot Z98.890 OTHER SPECIFIED POSTPROCEDURAL STATES 07/22/2016 MALI ORDOÑEZ REPRODUCTIVE SURGEON Ot K80.20 CALCULUS OF GALLBLADDER W/O CHOLECYSTITI 07/22/2016 SUJATA MIRZA, GEOFFREY Belle Ot R31.0 GROSS HEMATURIA 07/22/2016 GEOFFREY ERNST MD Ot N20.1 CALCULUS OF URETER 07/22/2016 SUJATA MIRZA, GEOFFREY Belle Ot N20.1 CALCULUS OF URETER 07/22/2016 SUJATA MIRZA, GEOFFREY Belle Ot Z98.890 OTHER SPECIFIED POSTPROCEDURAL STATES 10/30/2016 ERIC BUSTOS REPRODUCTIVE SURGEON Ot Z12.31 ENCNTR SCREEN MAMMOGRAM FOR MALIGNANT NE 11/11/2016 ERIC BUSTOS Ot Z12.31 ENCNTR SCREEN MAMMOGRAM FOR MALIGNANT NE Procedures Code [place] [address] ROUTINE VENIPUNCTURE 11/29/2012 14908 XRAY FINGER(S) LEFT MIN 2 VIEWS 11/29/2012 Orthopedi Neal Emerson 11/29/2012 24807 A1C (IN-HOUSE) 91224 CMP 11/29/2012 [id number] GFR CALC (RESULT ONLY) 11/29/2012 70220 URIC ACID 2012 58921 TSH 11/29/2012 62512 INJ TENDON SHEATH/LIGAMENT 01/26/2013 35449 INJ TENDON SHEATH/LIGAMENT 06/13/2013 08393 INFLUENZA A & B (IN-HOUSE) 10/30/2013 82352 INJ TENDON SHEATH/LIGAMENT 12/21/2013 19830 BARIUM SWALLOW XRAY MODIFIED 04/23/2014 83661 A1C (IN-HOUSE) 97929 H PYLORI (IN-HOUSE) 04/23/2014 84699 UA W/ CULTURE IF INDICATED 05/10/[address] ABDOMEN & PELVIS W/O CONTRAST 05/29/2014 UROLOGY GEOFFREY ERNST 96346 UA W/ CULTURE IF INDICATED 05/29/2014 32226 ROUTINE VENIPUNCTURE 09/07/2014 [id number] GFR CALC (RESULT ONLY) 09/07/2014 66922 CMP 09/07/2014 54587 TSH 09/07/2014 Results Test Result Range Urine beta human chorionic gonadotropin (hCG) measurement - 06/17/16 06:35 Urine beta human chorionic gonadotropin (hCG) measurement NEGATIVE NEGATIVE Methicillin resistant Staphylococcus aureus (MRSA) screening culture - 06:40 Methicillin resistant Staphylococcus aureus (MRSA) screening culture NEG NRG Complete urinalysis with reflex to culture - 03/12/17 22:10 Urine color determination YELLOW NRG Urine clarity determination CLEAR NRG Urine pH measurement by test strip 6.5 5 -9 Specific gravity of urine by test strip 1.005 1.016-1.022 Urine protein assay by test strip, semi-quantitative NEGATIVE NEGATIVE Urine glucose detection by automated test strip NEGATIVE NEGATIVE Erythrocytes detection in urine sediment by light microscopy 5+ NEGATIVE Urine ketones detection by automated test strip NEGATIVE NEGATIVE Urine nitrite detection by test strip NEGATIVE NEGATIVE Urine total bilirubin detection by test strip NEGATIVE NEGATIVE Urine urobilinogen measurement by automated test strip (mass/volume) NORMAL NORMAL Urine leukocyte esterase detection by dipstick NEGATIVE NEGATIVE Automated urine sediment erythrocyte count by microscopy (number/high power field) [HPF] NRG Automated urine sediment leukocyte count by microscopy (number/high power field ) NONE NRG Bacteria detection in urine sediment by light microscopy NONE NRG Squamous epithelial cells detection in urine sediment by light microscopy 2-5 NRG Crystals detection in urine sediment by light microscopy NONE NRG Casts detection in urine sediment by light microscopy NONE NRG Mucus detection in urine sediment by light microscopy NEGATIVE NRG Complete urinalysis with reflex to culture NO NRG Encounters ACCT No. Visit Date/Time Discharge Status Pt. Type Provider Facility Loc./Unit Complaint [id number] 12/31/2014 12:32:00 12/31/2014 23: 59:59 CLS Outpatient MALI ORDOÑEZ APRN [id number] 12/13/2014 16:18:00 12/13/2014 23: 59:59 CLS Outpatient WILL HAMMER APRN [id number] 09/10/2014 16:22:00 09/10/2014 23: 59:59 CLS Outpatient KAM BRITO DO [id number] 09/07/2014 08:02:00 09/07/2014 23: 59:59 CLS Outpatient KAM BRITO DO [id number] 05/31/2014 16:18:00 05/31/2014 23: 59:59 CLS Outpatient KAM BRITO DO [id number] 05/29/2014 16:39:00 05/29/2014 23: 59:59 CLS Outpatient KAM BRITO DO [id number] 05/10/2014 16:11:00 05/10/2014 23: 59:59 CLS Outpatient APOLINAR ROMERO MD [id number] 04/23/2014 16:24:00 04/23/2014 23: 59:59 CLS Outpatient KAM BRITO DO [id number] 04/11/2014 13:38:00 04/11/2014 23: 59:59 CLS Outpatient WILL HAMMER APRN [id number] 12/21/2013 16:16:00 12/21/2013 23: 59:59 CLS Outpatient KAM BRITO DO [id number] 10/30/2013 11:00:00 10/30/2013 23: 59:59 CLS Outpatient RACHEL FAJARDO APRN GOYO Ren [id number] 06/13/2013 10:59:00 06/13/2013 23: 59:59 CLS Outpatient KAM BRITO DO [id number] 11/29/2012 09:43:00 11/29/2012 23: 59:59 CLS Outpatient KAM BRITO DO [id number] 01/26/2013 12:42:00 Document Registration
== END 2017-03-13 01:04 | disposition home or self-care (01) ==
LOC: EDUNIT# 21:59 → ER 22:00
DX: N20.0 Calculus of kidney (principal); I10 Essential (primary) hypertension; F41.9 Anxiety disorder, unspecified; E03.9 Hypothyroidism, unspecified; M16.0 Bilateral primary osteoarthritis of hip; Z87.19 Personal history of other diseases of the digestive system; Z82.49 Family history of ischemic heart disease and other diseases of the circulatory system; Z87.59 Personal history of other complications of pregnancy, childbirth and the puerperium; Z90.710 Acquired absence of both cervix and uterus
CPT/HCPCS: 74020; 74176; 81000; 96361; 96365; 96372; 96375

== ENCOUNTER → 2017-03-16 | Outpatient (CLI) | payer BC ==
[~2017-03-16] MED LIST changes: +ALPR0.5T PO; +ALPR0.5T7; +CEPH-507 PO; +HYDR-3874 PO; +OXYC-202 PO; +PHEN-640 PO
== END ==
LOC: PREOP 05:42
PROVIDERS: ATTEND Urology
DX: Z01.818 Encounter for other preprocedural examination (principal); N20.1 Calculus of ureter

== ENCOUNTER 2017-03-17 05:52 | Day surgery (SDC) | payer BC ==
[~2017-03-17] VITALS: Ht 157.5 cm; Wt 99.8 kg
[~2017-03-17 05:52] MED LIST changes: -ALPR0.5T PO; -HYDR-3874 PO; -PHEN-640 PO
--- OUTSIDE RECORDS SUMMARY | 2017-03-17 05:59 | XMS REPORT | Continuity of Care Document ---
Author Author [facility] Address Unknown Phone Unavailable Allergies Active Description Code Type Severity Reaction Onset Reported/Identified Relationship to Patient Clinical Status Yes Cipro Drug Allergy N/A N/A 04/11/2014 Yes ciprofloxacin [id number] Drug Allergy Moderate N/V 04/12/2014 Yes ciprofloxacin HCl [id number] Drug Allergy Moderate N/V 04/12/2014 Yes amitriptyline 25 mg tablet Drug Allergy N/A N/A 09/10/2014 Yes metformin 500 mg tablet Drug Allergy N/A N/A 09/10/2014 Medications Problems Date Dx Coded Attending Type Code Diagnosis Diagnosed By 04/16/2008 KAM BRITO DO K 844.9 Sprain/strain Knee/leg 04/16/2008 844.9 Sprain/strain Knee/leg 04/16/2008 KAM BRITO DO K 844.9 Sprain/strain Knee/leg 04/16/2008 GOYO CAMP APRN N 844.9 Sprain/strain Knee/leg 04/16/2008 KAM BRITO DO [...] Recent Weight Gain From Overeating 02/20/2009 JAQUELIN SCALLOP RAKER WILL S 244.9 HYPOTHYROIDISM 02/20/2009 JAQUELIN SCALLOP RAKER, WILL S 296.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 02/20/2009 JAQUELIN SCALLOP RAKER, WILL S 780.79 Lethargy 02/20/2009 JAQUELIN SCALLOP RAKER, WILL S 783.1 Recent Weight Gain From [...] APRN S 251.1 HYPERINSULINISM EXOGENOUS 03/07/2009 TIAGO SCALLOP RAKER, MALI T 251.1 HYPERINSULINISM EXOGENOUS 04/01/2010 BRITO [...] K 788.63 Urinary Urgency 04/01/2010 RAMOS CASHERO SCALLOP RAKER, GOYO N 574.20 Calculus Of Gallbladder Without Mention Of Cholecystitis, Without Mention Of Obstruction 04/01/2010 RAMOS CASHERO SCALLOP RAKER, GOYO N 592.1 Calculus Of Ureter 04/01/2010 RAMOS CASHERO SCALLOP RAKER, GOYO N 788.63 Urinary Urgency 04/01/2010 BRITO DO, KAM K 574.20 Calculus Of Gallbladder Without Mention Of Cholecystitis, Without Mention Of Obstruction 04/01/2010 BRITO DO, KAM K 592.1 Calculus Of Ureter 04/01/2010 BRITO DO, KAM K 788.63 Urinary Urgency 04/01/2010 JAQUELIN SCALLOP RAKER, WILL S 574.20 Calculus Of Gallbladder Without Mention Of Cholecystitis, Without Mention Of Obstruction 04/01/2010 JAQUELIN SCALLOP RAKER, WILL S 592.1 Calculus Of Ureter 04/01/2010 JAQUELIN SCALLOP RAKER, WILL S 788.63 Urinary Urgency 04/01/2010 BRITO [...] 401.1 ESSENTIAL HYPERTENSION BENIGN 08/08/2010 RACHEL FAJARDO SCALLOP RAKER, GOYO N 300.00 ANXIETY UNSPEC 08/08/2010 RACHEL FAJARDO SCALLOP RAKER, GOYO N 401.1 ESSENTIAL HYPERTENSION BENIGN 08/08/2010 [...] SACROILIITIS NOT ELSEWHERE CLASSIFIED 03/26/2011 RAMOS BONILLAERO SCALLOP RAKER, GOYO N 564.00 Unspecified Constipation 03/26/2011 RAMOS CASHERO SCALLOP RAKER, GOYO N 720.2 SACROILIITIS NOT ELSEWHERE CLASSIFIED 03/26/2011 BRITO DO, KAM K 564.00 Unspecified Constipation 03/26/2011 BRITO DO, KAM K 720.2 SACROILIITIS NOT ELSEWHERE CLASSIFIED 03/26/2011 JAQUELIN SCALLOP RAKER, WILL S 564.00 Unspecified Constipation 03/26/2011 JAQUELIN SCALLOP RAKER, WILL S 720.2 SACROILIITIS NOT ELSEWHERE CLASSIFIED [...] 720.2 SACROILIITIS NOT ELSEWHERE CLASSIFIED 03/26/2011 JAQUELIN SCALLOP RAKER, WILL S 564.00 Unspecified Constipation 03/26/2011 JAQUELIN SCALLOP RAKER, WILL S 720.2 SACROILIITIS NOT ELSEWHERE CLASSIFIED [...] 724.2 BACK PAIN, LOWER 08/18/2011 RAMOS CASHERO SCALLOP RAKER, GOYO N 278.00 OBESITY UNSPECIFIED 08/18/2011 RAMOS CASHERO SCALLOP RAKER, GOYO N 724.2 BACK PAIN, LOWER 08/18/2011 BRITO DO, KAM K 278.00 OBESITY UNSPECIFIED 08/18/2011 BRITO DO, KAM K 724.2 BACK PAIN, LOWER 08/18/2011 JAQUELIN SCALLOP RAKER, WILL S 278.00 OBESITY UNSPECIFIED 08/18/2011 JAQUELIN SCALLOP RAKER, WILL S 724.2 BACK PAIN, LOWER 08/18/2011 [...] K 724.2 BACK PAIN, LOWER 08/18/2011 JAQUELIN SCALLOP RAKER, WILL S 278.00 OBESITY UNSPECIFIED 08/18/2011 JAQUELIN SCALLOP RAKER, WILL S 724.2 BACK PAIN, LOWER 08/18/2011 [...] BRITO DO K 787.91 DIARRHEA 10/30/2013 JAQUELIN SCALLOP RAKER, WILL S 787.01 NAUSEA WITH VOMITING 10/30/2013 [...] K V58.69 HIGH RISK MEDICATION 04/23/2014 HEATHER MIRZA, APOLINAR N 780.52 INSOMNIA UNSPECIFIED 04/23/2014 HEATHER [...] K V58.69 HIGH RISK MEDICATION 04/23/2014 JAQUELIN SCALLOP RAKERDEBI McclureNDA S 780.52 INSOMNIA UNSPECIFIED 04/23/2014 JAQUELIN SCALLOP RAKER, WILL S 786.50 CHEST PAIN 04/23/2014 JAQUELIN SCALLOP RAKER, WILL S 787.20 DYSPHAGIA UNSPECIFIED 04/23/2014 JAQUELIN SCALLOP RAKERDEBIWILL S 848.9 UNSPECIFIED SITE OF SPRAIN AND STRAIN 04/23/2014 JAQUELIN SCALLOP RAKER WILL S V58.69 HIGH RISK MEDICATION 04/23/2014 [...] 592.0 CALCULUS OF KIDNEY 05/29/2014 BRITO DO, AKM K 599.70 HEMATURIA UNSPECIFIED 05/29/2014 BRITO DO, [...] JAQUELINAVA VALDEZNWILL S 782.3 EDEMA 12/13/2014 TIAGO SCALLOP RAKER, MALI T 724.3 SCIATICA 12/13/2014 TIAGO SCALLOP RAKER, MALI T 782.3 EDEMA 01/04/2015 ROSAS PA, EVIE M Ot 787.20 01/04/2015 ROSAS PA, EVIE M Ot 571.8 01/04/2015 ROSAS PA, EVIE M Ot 574.20 01/04/2015 ROSAS PA, EIVE M Ot 592.0 01/04/2015 SUJATA MIRZA, GEOFFREY [...] GLENOID LABRUM LESION OF LEFT S 11/13/2015 KVEIN MOSES MD Ot Z79.899 OTHER SHELTER (CURRENT) DRUG THERAPY 12/13/2015 KEVIN MOSES MD [...] Ot 592.9 URINARY CALCULUS NOS 06/16/2016 KEVIN MOSES MD Ot M19.012 PRIMARY OSTEOARTHRITIS, [...] Ot N20.1 CALCULUS OF URETER 06/17/2016 GEOFFREY ERNTS MD Ot Z11.2 ENCOUNTER FOR SCREENING FOR [...] OTHER SPECIFIED POSTPROCEDURAL STATES 07/22/2016 MALI ORDOÑEZ CASH MANAGEMENT OFFICER Ot K80.20 CALCULUS OF GALLBLADDER W/O CHOLECYSTITI 07/22/2016 SUJATA MIRZA, GEOFFREY Belle Ot R31.0 GROSS HEMATURIA 07/22/2016 GEOFFREY ERNST MD Ot N20.1 CALCULUS OF URETER 07/22/2016 SUJATA MIRZA, GEOFFREY Belle Ot N20.1 CALCULUS OF URETER 07/22/2016 SUJATA MIRZA, GEOFFREY Belle Ot Z98.890 OTHER SPECIFIED POSTPROCEDURAL STATES 10/30/2016 ERIC BUSTOS CASH MANAGEMENT OFFICER Ot Z12.31 ENCNTR SCREEN MAMMOGRAM FOR MALIGNANT NE 11/11/2016 ERIC BUSTOS Ot Z12.31 ENCNTR SCREEN MAMMOGRAM FOR MALIGNANT NE Procedures Code [place] [address] ROUTINE VENIPUNCTURE 11/29/2012 73994 XRAY FINGER(S) LEFT MIN 2 VIEWS 11/29/2012 Orthopedi Neal Emerson 11/29/2012 91817 A1C (IN-HOUSE) 08685 CMP 11/29/2012 5579222 GFR CALC (RESULT ONLY) 11/29/2012 41862 URIC ACID 2012 75426 TSH 11/29/2012 14558 INJ TENDON SHEATH/LIGAMENT 01/26/2013 51984 INJ TENDON SHEATH/LIGAMENT 06/13/2013 37379 INFLUENZA A & B (IN-HOUSE) 10/30/2013 10346 INJ TENDON SHEATH/LIGAMENT 12/21/2013 07375 BARIUM SWALLOW XRAY MODIFIED 04/23/2014 10722 A1C (IN-HOUSE) 80923 H PYLORI (IN-HOUSE) 04/23/2014 63957 UA W/ CULTURE IF INDICATED 05/10/[address] ABDOMEN & PELVIS W/O CONTRAST 05/29/2014 UROLOGY GEOFFREY ERNST 56926 UA W/ CULTURE IF INDICATED 05/29/2014 57881 ROUTINE VENIPUNCTURE 09/07/2014 [id number] GFR CALC (RESULT ONLY) 09/07/2014 10712 CMP 09/07/2014 45578 TSH 09/07/2014 Results Test Result Range Urine [...] Status Pt. Type Provider Facility Loc./Unit Complaint [id number] 12/31/2014 12:32:00 12/31/2014 23: 59:59 CLS Outpatient MALI ORDOÑEZ APRN [id number] 12/13/2014 16:18:00 12/13/2014 23: 59:59 CLS Outpatient WILL HAMMER APRN [id number] 09/10/2014 16:22:00 09/10/2014 23: 59:59 CLS Outpatient KAM BRITO DO [id number] 09/07/2014 08:02:00 09/07/2014 23: 59:59 CLS Outpatient KAM BRITO DO [id number] 05/31/2014 16:18:00 05/31/2014 23: 59:59 CLS Outpatient KAM BRITO DO [id number] 05/29/2014 16:39:00 05/29/2014 23: 59:59 CLS Outpatient KAM BRITO DO [id number] 05/10/2014 16:11:00 05/10/2014 23: 59:59 CLS Outpatient APOLINAR ROMERO MD [id number] 04/23/2014 16:24:00 04/23/2014 23: 59:59 CLS Outpatient KAM BRITO DO [id number] 04/11/2014 13:38:00 04/11/2014 23: 59:59 CLS Outpatient WILL HAMMER APRN [id number] 12/21/2013 16:16:00 12/21/2013 23: 59:59 CLS Outpatient KAM BRITO DO [id number] 10/30/2013 11:00:00 10/30/2013 23: 59:59 CLS Outpatient RACHEL FAJARDO APRN GOYO Ren [id number] 06/13/2013 10:59:00 06/13/2013 23: 59:59 CLS Outpatient KAM BRITO DO [id number] 11/29/2012 09:43:00 11/29/2012 23: 59:59 CLS Outpatient KAM BRITO DO [id number] 01/26/2013 12:42:00 Document Registration
[2017-03-17 06:20] VITALS: BP 135/93
[2017-03-17] MEDS ORDERED: CATHETER FLUSH 10 ML SYR IV PRN (06:30)
[2017-03-17] MEDS ORDERED: cefTRIAXone 1 GM/NS 50 ML IVPB IV ONE ×2 (06:30)
[2017-03-17] MEDS ORDERED: LACTATED RINGERS 1,000 ML IV PRN (06:41)
[2017-03-17] MEDS ORDERED: ALPR0.5T PO (06:50)
[2017-03-17] MEDS ORDERED: FUROSEMIDE 40 MG/4 ML INJ (LASIX) ONE (06:53)
[2017-03-17] MEDS ORDERED: LACTATED RINGERS 1,000 ML IV ONE (06:53)
[2017-03-17] MEDS ORDERED: SEVOFLURANE (ULTANE) 15 ML INHAL SOLN ONE (06:53)
[2017-03-17] MEDS ORDERED: proPOfol 200 MG/20 ML (DIPRIVAN) VIAL IV ONE (06:53)
[2017-03-17] MEDS ORDERED: LIDOCAINE PF 2% 5 ML (XYLOCAINE) VIAL ONE (06:53)
[2017-03-17] MEDS ORDERED: MIDAZOLAM 2 MG/2 ML (VERSED) VIAL ONE (06:54)
[2017-03-17] MEDS ORDERED: fentaNYL INJECTION 100 MCG/2 ML AMP ONE (06:54)
--- NOTE | 2017-03-17 06:56 | Progress Note-Pre Operative ---
Pre-Operative Progress Note H&P Reviewed The H&P was reviewed, patient examined and no changes noted. Date Seen by Provider: Mar 17, 2017 Time Seen by Provider: 06:55 Date H&P Reviewed: Mar 17, 2017 Time H&P Reviewed: 06:55 Pre-Operative Diagnosis: RT PROXIMAL URETERAL STONE GEOFFREY ERNST MD Mar 17, 2017 6:56 am
--- NOTE | 2017-03-17 07:02 | Diagnostic Imaging Report ---
CLINICAL INDICATION: Patient with right-sided pain, ESWL. EXAM: KUB x-ray. COMPARISON: KUB x-ray dated 03/13/2017. FINDINGS: There is no significant change to the appearance of the abdomen and pelvis. There are stable appearing multiple calcifications in the right and left pelvis regions. Stable stone overlying the mid left kidney region. Nonobstructed bowel gas pattern is seen. Surgical clips are seen in the left pelvis. There are hypertrophic spurs involving the thoracic and lumbar spine. IMPRESSION: 1: There is stable appearance of the pelvis with multiple calcifications seen in the right and left sides of the pelvis. These may represent phleboliths, but underlying ureteral stone cannot be completely excluded. CT scan of abdomen and pelvis would better evaluate if necessary. 2: Stable left nephrolithiasis. Dictated by: Dictated on workstation # [id number]
[2017-03-17] MEDS ORDERED: ROCURONIUM 50 MG/5 ML (ZEMURON) VIAL IV ONE (07:04)
[2017-03-17] MEDS ORDERED: ONDANSETRON 4 MG/2 ML (SDV) Z0FRAN ONE (07:59)
--- NOTE | 2017-03-17 08:16 | Discharge Inst-Urology ---
Discharge Inst-Urology Discharge Medications New, Converted, or Re-newed RX: RX on Chart Patient Instructions/Follow Up Plan Please make appointment to been seen in office in 2 weeks. Increase oral fluids for 48 hours and then as needed. Diet and Activity as tolerated. If questions or concerns contact your physician Or seek help at emergency department. GEOFFREY ERNST MD Mar 17, 2017 8:16 am
--- NOTE | 2017-03-17 08:18 | Progress Note-Post Operative ---
Post-Operative Progess Note Surgeon (s)/Analyst Microbiology Lab (s) Surgeon GEOFFREY ERNST MD Analyst Microbiology Lab: N/A Pre-Operative Diagnosis RT PROXIMAL URETERAL STONE Post-Operative Diagnosis RT DISTAL URETERAL STONE AND VAGINAL PROLAPSE Procedure & Operative Findings Date of Procedure 03/17/17 Procedure Performed/Findings CYSTO, RT RETROGRADE, RT URETEROSCOPY WITH STONE LITHOTRIPSY Anesthesia Type GENERAL Estimated Blood Loss Estimated blood loss (mL): N/A Specimens/Packing Specimens Removed N/A Packing: N/A GEOFFREY ERNST MD Mar 17, 2017 8:18 am
[2017-03-17] MEDS ORDERED: morphine INJ 10 MG/ML 1ML (SYR OR VIAL) IVP PRN (08:30)
[2017-03-17] MEDS ORDERED: ONDANSETRON 4 MG/2 ML (SDV) Z0FRAN IVP PRN (08:30)
[2017-03-17 09:00] VITALS: BP 158/89
[2017-03-17 09:30] VITALS: BP 166/80
[2017-03-17] MEDS ORDERED: TAMS0.4C98 PO (09:30)
[2017-03-17] MEDS ORDERED: NITR-65 PO (09:30)
[2017-03-17] MEDS ORDERED: HYDR-3874 PO (09:30)
[2017-03-17] MEDS ORDERED: PHEN-640 PO (09:30)
--- NOTE | 2017-03-17 18:23 | OPERATIVE REPORT ---
PROCEDURE PHYSICIAN: GEOFFREY ERNST DATE OF PROCEDURE: 03/17/2017 PREOPERATIVE DIAGNOSIS: Right ureteral stone. POSTOPERATIVE DIAGNOSIS: Right ureteral stone. OPERATION: 1. Cystoscopy. 2. Right retrograde urogram. 3. Right ureteroscopy with stone lithotripsy. SURGEON: Rusty. ANESTHESIA: General. COMPLICATIONS: None. PROCEDURE: Under satisfactory general anesthesia, the patient in the lithotomy position, the genitalia were prepped and draped in usual sterile fashion. Noted a vaginal prolapse. The cystoscope was introduced in the bladder. The bladder essentially was normal. There was some trabeculation. No foreign bodies, bladder tumor, or stone visualized. Ureteric orifice is normal in shape, site and configuration with clear efflux, very sluggish on the right side. Using the Foroblique lens, I dilated the right ureteral orifice intramural portion and met resistance just after the intramural portion. I injected contrast and everything was dilated above that point, was a filling defect there. I removed the ureter and the catheter, inserted a 6.9-Malian semirigid ureteroscope. Visualized the stone using the lithoclast at a power of 100 and level of 12. I completely fragmented the stone. The fragments were flowing easily down into the bladder. There was no need for a stent. There was no extravasation of contrast. I removed the ureteroscope, reinserted the cystoscope and emptied the bladder. The patient tolerated the procedure and anesthesia well and was sent to recovery room in stable condition. Job ID: [id number] Dictated Date: 03/17/2017 08:05:28 Oxygen Equipment Technician Date: 03/17/2017 18:14:10 / noris
== END 2017-03-17 09:52 | disposition home or self-care (01) ==
LOC: SDC 05:52
PROVIDERS: ATTEND Urology
DX: N20.1 Calculus of ureter (principal); E11.9 Type 2 diabetes mellitus without complications; I10 Essential (primary) hypertension; Z79.899 Other long term (current) drug therapy; Z11.2 Encounter for screening for other bacterial diseases
CPT/HCPCS: 74000; 87081

== ENCOUNTER 2017-04-13 09:00 | Outpatient (RCR) | payer BC ==
[2017-04-09 17:16] LABS: ANION GAP 13 MMOL/L (5-14); BLOOD UREA NITROGEN 15 MG/DL (7-18); BUN/CREATININE RATIO 22; CALCIUM 9.3 MG/DL (8.5-10.1); CARBON DIOXIDE 22 MMOL/L (21-32); CHLORIDE 105 MMOL/L (98-107); CREATININE SERUM 0.69 MG/DL (0.60-1.30); GFR ESTIMATED > 60; GLUCOSE 101 MG/DL (70-105); POTASSIUM 3.8 MMOL/L (3.6-5.0); SODIUM 140 MMOL/L (135-145)
[2017-04-12 07:12] LABS: CALCIUM PARA THYROID HORMONE 9.4 mg/dL (8.5-10.5); PTH INTACT IRMA 45.2 pg/mL (10.0-65.0)
[~2017-04-13 09:00] MED LIST changes: +ALPR0.5T PO; +HYDR-3874 PO; +PHEN-640 PO
== END 2017-06-05 | disposition home or self-care (01) ==
LOC: RAD 09:00
PROVIDERS: ATTEND Urology
DX: N20.0 Calculus of kidney (principal)
CPT/HCPCS: 36415; 74000; 80048; 83970; 84100; 84550

== ENCOUNTER 2018-04-03 17:13 | Emergency (ER) | payer SELFPAY ==
[~2018-04-03] VITALS: Ht 154.9 cm; Wt 99.8 kg
[~2018-04-03 17:13] MED LIST changes: +HYDR-3870 PO; -HYDR-3874 PO; -METF1000 PO; +METF10002 PO; +NAPR-915 PO; -NAPR500T3 PO
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
[2018-04-03] MEDS ORDERED: RX-CYCLOBENZAPRINE 10 MG (FLEXERIL) TAB PPK#3 PO STA (18:23)
[2018-04-03] MEDS ORDERED: METH-313 PO (18:23)
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
--- NOTE | 2018-04-03 18:54 | Diagnostic Imaging Report ---
INDICATION: Low back pain, trauma. COMPARISON: None. EXAMINATION: Three views of the lumbar spine were obtained. FINDINGS: Normal alignment. There is no subluxation or fracture. Mild diffuse degenerative changes are seen. SI joints are symmetric. IMPRESSION: No traumatic malalignment or fracture. Dictated by: Dictated on workstation # [id number]
--- NOTE | 2018-04-03 18:55 | Diagnostic Imaging Report ---
INDICATION: Left hand injury, pain. COMPARISON: None. EXAMINATION: Three views of the left hand were obtained. FINDINGS: No fracture or dislocation. Articular surfaces are age-appropriate. There is no foreign body. IMPRESSION: No fracture or dislocation. Dictated by: Dictated on workstation # [id number]
[2018-04-03 19:03] VITALS: BP 138/93
== END 2018-04-03 19:03 | disposition home or self-care (01) ==
LOC: EDUNIT# 17:13 → ER 17:15
DX: S46.911A Strain of unspecified muscle, fascia and tendon at shoulder and upper arm level, right arm, initial encounter (principal); S39.012A Strain of muscle, fascia and tendon of lower back, initial encounter; I10 Essential (primary) hypertension; E03.9 Hypothyroidism, unspecified; R40.2142 Coma scale, eyes open, spontaneous, at arrival to emergency department; R40.2252 Coma scale, best verbal response, oriented, at arrival to emergency department; R40.2362 Coma scale, best motor response, obeys commands, at arrival to emergency department; F41.9 Anxiety disorder, unspecified; Z82.49 Family history of ischemic heart disease and other diseases of the circulatory system; Z87.448 Personal history of other diseases of urinary system; Z87.442 Personal history of urinary calculi; Z88.1 Allergy status to other antibiotic agents; Z87.59 Personal history of other complications of pregnancy, childbirth and the puerperium; Z90.710 Acquired absence of both cervix and uterus; Z77.22 Contact with and (suspected) exposure to environmental tobacco smoke (acute) (chronic); V49.40XA Driver injured in collision with unspecified motor vehicles in traffic accident, initial encounter
CPT/HCPCS: 72100; 73030; 73130

== ENCOUNTER 2020-12-04 10:39 | Emergency (ER) | payer SELFPAY ==
[~2020-12-04] VITALS: Ht 154 cm; Wt 103.0 kg
[~2020-12-04 10:39] MED LIST changes: +AMLO-250 PO; -AMLO5TAB2 PO; -HYDR-3876 PO; +HYDR-3920 PO; -LISI1TAB10 PO; +LISI1TAB26 PO; +METF-399 PO; -METF10002 PO; +METH-313 PO; -OXYC-202 PO; -OXYC-471 PO; +OXYC1TAB11 PO; +OXYC1TAB12 PO; -TAMS0.4C98 PO; +TMSL.4C PO
[2020-12-04] MEDS ORDERED: FAMOTIDINE 20MG/2ML IV (PEPCID) IV STA (10:47)
[2020-12-04] MEDS ORDERED: LIDOCAINE 2% VISCOUS 15 ML UDC PO ONE (11:00)
[2020-12-04] MEDS ORDERED: ANTACID SUSP 30 ML UDC (MYLANTA) PO ONE (11:00)
[2020-12-04 11:08] LABS: BASOPHILS % (AUTO) 1 % (0-10); EOSINOPHILS # (AUTO) 0.1 10^3/uL (0.0-0.3); EOSINOPHILS % (AUTO) 1 % (0-10); HEMATOCRIT 43 % (35-52); HEMOGLOBIN 14.2 g/dL (11.5-16.0); LYMPHOCYTES # (AUTO) 2.2 10^3/uL (1.0-4.0); LYMPHOCYTES % (AUTO) 33 % (12-44); MEAN CORPUSCULAR HEMOGLOBIN 30 pg (25-34); MEAN CORPUSCULAR HGB CONC 33 g/dL (32-36); MEAN CORPUSCULAR VOLUME 89 fL (80-99); MEAN PLATELET VOLUME 10.1 fL (9.0-12.2); MONOCYTES # (AUTO) 0.6 10^3/uL (0.0-1.0); MONOCYTES % (AUTO) 9 % (0-12); NEUTROPHILS # (AUTO) 3.7 10^3/uL (1.8-7.8); NEUTROPHILS % (AUTO) 56 % (42-75); PLATELET COUNT 274 10^3/uL (130-400); WHITE BLOOD COUNT 6.5 10^3/uL (4.3-11.0)
--- NOTE | 2020-12-04 11:30 | ED Chest Pain ---
General Chief Complaint: Chest Pain Stated Complaint: CP, Nursing Triage Note: PT AMB TO ROOM1 PT CO OF C/P PT STATES SENT TO ED BY [facility]. PT STATES WAS GIVEN ASA 324 BY [facility]. PT STATES C/P STARTED AT 0500 THIS AM. PT STATES FELT LIKE SOMETHING ON CHEST EARLIER, PT STATES HAS NO PAIN PAIN AT THIS X Nursing Sepsis Screen: No Definite Risk Source: patient, RN/MD Exam Limitations: no limitations History of Present Illness Date Seen by Provider: Dec 04, 2020 Time Seen by Provider: 10:40 Initial Comments Patient presents ER by private conveyance from [facility] where she was seen for chest pressure going up meds sternum, originating in the epigastric region. She describes it as a burning pain. She has a history of gallstones. She started celebrex 1-1/2 months ago. She had some nausea couple days ago. This episode started around 6:00 this morning when she woke up. She is been having these episodes just like this for the past few days. No diarrhea cough shortness of air or sick contacts fever chills. No history of coronary disease. She denies a history of hyperlipidemia, hypertension, diabetes but she says she is prediabetic but not on any medications yet with a last hemoglobin A1c of 6.1. Allergies and Home Medications Allergies Coded Allergies: ciprofloxacin (Verified Allergy, Intermediate, N/V, 11/06/15) Home Medications Alprazolam 0.5 Mg Tablet, 0.5 MG PO BID, (Reported) Hydrocodone/Acetaminophen 1 Each Tablet, 1-2 EACH PO Q4H PRN for PAIN Prescribed by: RUDDY RODRÍGUEZ on 03/17/17 0930 Levothyroxine Sodium 150 Mcg Tablet, 150 MCG PO DAILY, (Reported) Methocarbamol 750 Mg Tablet, 750-1,500 MG PO Q6H PRN for PAIN-MILD TO MODERATE Prescribed by: ASHLEY MARTINEZ on 04/03/18 1823 Nitrofurantoin Monohyd/M-Cryst 100 Mg Capsule, 1 TAB PO BID Prescribed by: RUDDY RODRÍGUEZ on 03/17/17 0930 Omeprazole 20 Mg Capsule.dr, 20 MG PO BID Prescribed by: MATTHEW HARRIS on 12/04/20 1356 Ondansetron 4 Mg Tab.rapdis, 4 MG PO Q6H PRN for NAUSEA/VOMITING Prescribed by: MATTHEW HARRIS on 12/04/20 1356 Oxycodone HCl/Acetaminophen 1 Each Tablet, 1-2 EACH PO Q6H PRN for PAIN-MILD TO MODERATE Prescribed by: MATTHEW HARRIS on 03/13/17 0059 Phenazopyridine HCl 200 Mg Tablet, 1 TAB PO TID Prescribed by: RUDDY RODRÍGUEZ on 03/17/17 0930 Sucralfate 1 Gm Tablet, 1 GM PO QIDACHS Prescribed by: MATTHEW HARRIS on 12/04/20 1356 Tamsulosin HCl 0.4 Mg Cap, 0.4 MG PO DAILY Prescribed by: RUDDY RODRÍGUEZ on 03/17/17 0930 Patient Home Medication List Home Medication List Reviewed: Yes Review of Systems Review of Systems Constitutional: No chills, No diaphoresis EENTM: No Blurred Vision, No Double Vision Respiratory: Denies Cough, Denies Shortness of Air Cardiovascular: Chest Pain; Denies Lightheadedness Gastrointestinal: See HPI, Abdominal Pain; Denies Constipated, Denies Diarrhea; Nausea Genitourinary: Denies Burning, Denies Discharge All Other Systems Reviewed Negative Unless Noted: Yes Past Vhmltgg-Zqozfx-Rcflbt Hx Patient Social History 2nd Hand Smoke Exposure: Yes Recent Infectious Disease Expo: No Recent Hopitalizations: No Immunizations Up To Date Tetanus Booster (TDap): Unknown Seasonal Allergies Seasonal Allergies: No Past Medical History Surgeries: Yes (SHOULDER SCOPE) Section, Hysterectomy Respiratory: No Cardiac: Yes (STRESS TEST OVER A YEAR AGO - NO PROBLEMS) Hypertension Neurological: Yes (HASN'T HAD ONE IN A VERY LONG TIME) Reproductive Disorders: No 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 HIV/AIDS: No Kidney Stones Gastrointestinal: No (GALLSTONES) Gall Bladder Disease Musculoskeletal: Yes (ARTHRITIS IN HIPS) Arthritis Endocrine: Yes Hypothyroidsim Loss of Vision: Bilateral Hearing Impairment: Denies Cancer: No Psychosocial: Yes Anxiety Integumentary: No Blood Disorders: No Adverse Reaction/Blood Tranf: No Family Medical History Coronary artery bypass surgery 19 MOTHER Dementia 19 FATHER Diabetes mellitus 19 MOTHER FH: chronic obstructive pulmonary disease 19 MOTHER FH: emphysema 19 FATHER Thyroid disease 19 FATHER Physical Exam Vital Signs Vital Signs - First Documented 12/04/20 10:40 Temp 36.3 Pulse 71 Resp 18 B/P (MAP) 148/80 (102) Pulse Ox 98 O2 Delivery Room Air Capillary Refill : Less Than 3 Seconds Height, Weight, BMI Height: 5'1.00" Weight: 220lbs. 0.0oz. 99.391895gj; 43.00 BMI Method:Stated General Appearance: No Apparent Distress, WD/WN HEENT: PERRL/EOMI, Pharynx Normal, Moist Mucous Membranes Neck: Full Range of Motion, Normal Inspection Respiratory: Normal Breath Sounds, No Accessory Muscle Use, No Respiratory Distress Cardiovascular: Regular Rate, Rhythm, Normal Peripheral Pulses Gastrointestinal: Normal Bowel Sounds, Soft; No Distended, No Guarding; Tenderness (Right upper quadrant negative for Chan sign) Extremity: Normal Capillary Refill, Normal Inspection Neurologic/Psychiatric: Alert, Oriented x3 Skin: Normal Color, Warm/Dry Progress/Results/Core Measures Results/Orders Lab Results Laboratory Tests Test 12/04/20 10:55 Range/Units White Blood Count 6.5 4.3-11.0 10^3/uL Red Blood Count 4.80 3.80-5.11 10^6/uL Hemoglobin 14.2 11.5-16.0 g/dL Hematocrit 43 35-52 % Mean Corpuscular Volume 89 80-99 fL Mean Corpuscular Hemoglobin 30 25-34 pg Mean Corpuscular Hemoglobin Concent 33 32-36 g/dL Red Cell Distribution Width 12.8 10.0-14.5 % Platelet Count 274 130-400 10^3/uL Mean Platelet Volume 10.1 9.0-12.2 fL Immature Granulocyte % (Auto) 1 % Neutrophils (%) (Auto) 56 42-75 % Lymphocytes (%) (Auto) 33 12-44 % Monocytes (%) (Auto) 9 0-12 % Eosinophils (%) (Auto) 1 0-10 % Basophils (%) (Auto) 1 0-10 % Neutrophils # (Auto) 3.7 1.8-7.8 10^3/uL Lymphocytes # (Auto) 2.2 1.0-4.0 10^3/uL Monocytes # (Auto) 0.6 0.0-1.0 10^3/uL Eosinophils # (Auto) 0.1 0.0-0.3 10^3/uL Basophils # (Auto) 0.0 0.0-0.1 10^3/uL Immature Granulocyte # (Auto) 0.0 0.0-0.1 10^3/uL Prothrombin Time 13.0 12.2-14.7 SEC INR Comment 0.9 0.8-1.4 Activated Partial Thromboplast Time 24 24-35 SEC D-Dimer 0.30 0.00-0.49 UG/ML Sodium Level 140 135-145 MMOL/L Potassium Level 4.2 3.6-5.0 MMOL/L Chloride Level 106 98-107 MMOL/L Carbon Dioxide Level 24 21-32 MMOL/L Anion Gap 10 5-14 MMOL/L Blood Urea Nitrogen 10 7-18 MG/DL Creatinine 0.73 0.60-1.30 MG/DL Estimat Glomerular Filtration Rate > 60 BUN/Creatinine Ratio 14 Glucose Level 89 70-105 MG/DL Calcium Level 9.3 8.5-10.1 MG/DL Corrected Calcium 9.0 8.5-10.1 MG/DL Magnesium Level 2.2 1.6-2.4 MG/DL Total Bilirubin 0.5 0.1-1.0 MG/DL Aspartate Amino Transf (AST/SGOT) 26 5-34 U/L Alanine Aminotransferase (ALT/SGPT) 34 0-55 U/L Alkaline Phosphatase 83 40-136 U/L Myoglobin 31.8 10.0-92.0 NG/ML Troponin I < 0.028 <0.028 NG/ML Total Protein 8.1 6.4-8.2 GM/DL Albumin 4.4 3.2-4.5 GM/DL Lipase 36 8-78 U/L My Orders Orders - STEVEN,MATTHEW J Cbc With Automated Diff (12/04/20 10:47) Magnesium (12/04/20 10:47) Chest 1 View, Ap/Pa Only (12/04/20 10:47) Ekg Tracing (12/04/20 10:47) Comprehensive Metabolic Panel (12/04/20 10:47) Myoglobin Serum (12/04/20 10:47) Protime With Inr (12/04/20 10:47) Partial Thromboplastin Time (12/04/20 10:47) O2 (12/04/20 10:47) Monitor-Rhythm Ecg Trace Only (12/04/20 10:47) Lipid Panel (12/05/20 06:00) Ed Iv/Invasive Line Start (12/04/20 10:47) Lipase (12/04/20 10:47) Troponin I (12/04/20 10:47) Lidocaine 2% Viscous 15 Ml (Xylocaine Vi (12/04/20 11:00) Antacid Suspension (Mylanta Suspension (12/04/20 11:00) Famotidine Injection (Pepcid Injection) (12/04/20 10:47) Fibrin Degradation Products (12/04/20 10:55) Medications Given in ED Current Medications Medications Dose Ordered Sig/Wilber Route Start Time Stop Time Status Last Admin Dose Admin Al Hydrox/Mg Hydrox/Simethicone 30 ml ONCE ONCE PO 12/04/20 11:00 12/04/20 11:01 DC 12/04/20 11:03 30 ML Lidocaine HCl 15 ml ONCE ONCE PO 12/04/20 11:00 12/04/20 11:01 DC 12/04/20 11:03 15 ML Vital Signs/I&O 12/04/20 12/04/20 10:40 10:40 Temp 36.3 Pulse 71 Resp 18 B/P (MAP) 148/80 (102) Pulse Ox 98 O2 Delivery Room Air Blood Pressure Mean: 102 Progress Progress Note #1: Time: 11:29 Progress Note She received aspirin from [facility] and her pain is now 1 out of 10. GI cocktail, labs. Suspect gallbladder, gastritis related to NSAIDs, coronary, respiratory. Progress Note #2: Time: 13:50 Progress Note Patient's pain is gone after GI cocktail. She is not having any more pressure or tightness. She has a history of gallstones. Her troponin is negative almost 6 hours after the start of her pain. We discussed that the likelihood is that this is biliary colic versus NSAID gastritis and Vikki put her on omeprazole, Carafate, Tums for breakthrough pain and follow-up with Dr. Kay. We have written an outpatient ultrasound of her gallbladder that she can pursue before seeing the surgeon. Initial ECG Impression Date: Dec 04, 2020 Initial ECG Impression Time: 10:42 Initial ECG Rate: 65 Initial ECG Rhythm: Normal Sinus Initial ECG Intervals: Normal Initial ECG Impression: Normal Initial ECG Comparisson: No Previous ECG Available Comment Normal sinus rhythm without clinically relevant ST elevation or depression Diagnostic Imaging Diagonstic Imaging: Xray Plain Films/CT/US/NM/MRI: chest Comments [facility]. [place], [place] NAME: SETH SCOTT [facility] REC#: [id number] PT STATUS: REG ER : 1965 PHYSICIAN: MATTHEW HARRIS MD ADMIT DATE: 12/04/20/ER Draft Date of Exam:12/04/20 CHEST 1 VIEW, AP/PA ONLY INDICATION: Chest pain. COMPARISON: 04/12/2014. FINDINGS: Single frontal view of the chest demonstrates normal heart size and pulmonary vascularity. The lungs are well aerated and clear. No large pleural effusion or pneumothorax is seen. The visualized osseous structures show no acute abnormalities. IMPRESSION: 1. No acute cardiopulmonary process. Dictated on workstation # [id number] Dict: 12/04/20 1206 Trans: 12/04/20 1207 [facility] [phone] Interpreted by: HELEN FISHER MD Electronically signed by: Reviewed: Reviewed by Me Departure Impression Primary Impression: NSAID induced gastritis Additional Impression: Gallstones Disposition: HOME, SELF-CARE Condition: Improved Departure-Patient Inst. Decision time for Depature: 13:53 Referrals: [facility] [place] Primary Care Physician MALI ORDOÑEZ (Family) Primary Care Physician SERAFIN KAY DO Patient Instructions: Gallbladder Diet, Gastritis (DC) Add. Discharge Instructions: Avoid spicy, greasy foods such as dairy, red meat. White meat is acceptable and iceberg lettuce seems to make symptoms worse. Yahir, high-fiber foods are all good options. If you have breakthrough pain try an antacid such as Maalox, Mylanta, Tums, Rolaids etc. Tylenol 1000 mg every 8 hours as necessary for pain. Discontinue your Celebrex until cleared by your primary care doctor. Schedule a follow-up ultrasound of your gallbladder and follow-up shortly afterwards with Dr. Kay for results. Omeprazole 20 mg twice a day for the next 30 days. Carafate half an hour before meals and at bedtime for the next 2 weeks. Ondansetron 1 tablet under the tongue every 6 hours as necessary for nausea and/or vomiting. Return to the ER promptly if you are having fever above 102.5, intractable pain and/or nausea despite the above medications. All discharge instructions reviewed with patient and/or family. Voiced understanding. Scripts Omeprazole (Omeprazole) 20 Mg Capsule. 20 MG PO BID for 30 Days, #60 CAP 0 Refills Prov: MATTHEW HARRIS 12/04/20 Ondansetron (Ondansetron Odt) 4 Mg Tab.rapdis 4 MG PO Q6H PRN for NAUSEA/VOMITING, #8 TAB 0 Refills Prov: MATTHEW HARRIS 12/04/20 Sucralfate (Carafate) 1 Gm Tablet 1 GM PO QIDACHS for 14 Days, #56 TAB 0 Refills Prov: MATTHEW HARRIS 12/04/20 Copy Copies To 1: SERAFIN KAY DO MATTHEW HARRIS Dec 04, 2020 11:30
[2020-12-04 11:38] LABS: ALBUMIN 4.4 GM/DL (3.2-4.5); CHLORIDE 106 MMOL/L (98-107); POTASSIUM 4.2 MMOL/L (3.6-5.0); SODIUM 140 MMOL/L (135-145)
[2020-12-04 11:39] LABS: FIBRIN DEGRADATION PRODUCTS 0.3 UG/ML (0.00-0.49); INR 0.9 (0.8-1.4)
[2020-12-04 11:40] LABS: CALCIUM 9.3 MG/DL (8.5-10.1)
[2020-12-04 11:41] LABS: GLUCOSE 89 MG/DL (70-105); TOTAL PROTEIN 8.1 GM/DL (6.4-8.2)
[2020-12-04 11:42] LABS: CARBON DIOXIDE 24 MMOL/L (21-32)
[2020-12-04 11:43] LABS: BILIRUBIN,TOTAL 0.5 MG/DL (0.1-1.0)
[2020-12-04 11:44] LABS: ALKALINE PHOSPHATASE 83 U/L (40-136)
[2020-12-04 11:45] LABS: CREATININE SERUM 0.73 MG/DL (0.60-1.30); GFR ESTIMATED > 60
[2020-12-04 11:46] LABS: BUN/CREATININE RATIO 14
[2020-12-04 11:47] LABS: ALANINE AMINOTRANSFERASE 34 U/L (0-55); MAGNESIUM 2.2 MG/DL (1.6-2.4)
[2020-12-04 11:48] LABS: LIPASE 36 U/L (8-78)
--- NOTE | 2020-12-04 12:07 | Diagnostic Imaging Report ---
INDICATION: Chest pain. COMPARISON: 04/12/2014. FINDINGS: Single frontal view of the chest demonstrates normal heart size and pulmonary vascularity. The lungs are well aerated and clear. No large pleural effusion or pneumothorax is seen. The visualized osseous structures show no acute abnormalities. IMPRESSION: 1. No acute cardiopulmonary process. Dictated by: Dictated on workstation # [id number]
[2020-12-04] MEDS ORDERED: SUCR1TAB36 PO (13:56)
[2020-12-04] MEDS ORDERED: ONDA4TAB11 PO (13:56)
[2020-12-04] MEDS ORDERED: OMEP20CA18 PO (13:56)
[2020-12-04 14:06] VITALS: BP 124/80
== END 2020-12-04 14:14 | disposition home or self-care (01) ==
LOC: EDUNIT# 10:39 → ER 10:40
DX: K29.60 Other gastritis without bleeding (principal); T39.395A Adverse effect of other nonsteroidal anti-inflammatory drugs [NSAID], initial encounter; K80.80 Other cholelithiasis without obstruction; I10 Essential (primary) hypertension; F41.9 Anxiety disorder, unspecified; E03.9 Hypothyroidism, unspecified; Z77.22 Contact with and (suspected) exposure to environmental tobacco smoke (acute) (chronic); Z79.890 Hormone replacement therapy; Z88.1 Allergy status to other antibiotic agents
CPT/HCPCS: 36415; 71045; 80053; 83690; 83735; 83874; 84484; 85025; 85379; 85610; 85730; 93005; 93041

== ENCOUNTER 2021-10-24 14:01 | Emergency (ER) | payer SELFPAY ==
[~2021-10-24] VITALS: Ht 154.5 cm; Wt 108.8 kg
[~2021-10-24 14:01] MED LIST changes: -LISI1TAB26 PO; +LISI1TAB48 PO; +OMEP20CA18 PO; +ONDA4TAB11 PO; +SUCR1TAB36 PO
--- NOTE | 2021-10-24 14:29 | ED Neurological Problem ---
General Chief Complaint: Neurological Problems Stated Complaint: POSSIBLE TIA Nursing Triage Note: PT AMB TO [facility] 4 WITH COMPLAINT OF DIZZINESS, SLURRED SPEECH THAT STARTED AORUND [id number] LAST NIGHT. STATES SYMPTOMS LASTED FOR 15 MINUTES. STATES TODAY SHE FEELS SHAKY AND HE "HEAD IS IN THE CLOUDS". WAS SENT BY [facility] FOR FURTHER EXAMINATION. Source: patient Exam Limitations: no limitations History of Present Illness Date Seen by Provider: Oct 24, 2021 Time Seen by Provider: 14:09 Initial Comments 56-year-old female with past medical history of hypothyroidism coming in due to dizziness, slurred speech, and just feeling generally off that occurred last night for roughly 15 minutes. Went away afterwards and she was back to normal. She still feels like she is thinking through a fog but has not had any real issues today. Denies any chest pain, shortness of breath, abdominal pain, nausea, vomiting, diarrhea, fever, chills, focal weakness, numbness, current vision changes. She said this occurred after she went from laying to sitting up in bed last night and felt dizzy. Her came over to see what was going on and she felt like she was unable to tell him with difficulty speaking at the time. This is never happened before. Allergies and Home Medications Allergies Coded Allergies: ciprofloxacin (Verified Allergy, Intermediate, N/V, 11/06/15) Patient Home Medication List Home Medication List Reviewed: Yes Alprazolam (Xanax) 0.5 Mg Tablet, 0.5 MG PO BID, (Reported) Entered as Reported by: RUDDY RODRÍGUEZ on 03/17/17 0650 Hydrocodone/Acetaminophen (Lorcet 5-325 mg Tablet) 1 Each Tablet, 1-2 EACH PO Q4H PRN for PAIN Prescribed by: RUDDY RODRÍGUEZ on 03/17/17 0930 Levothyroxine Sodium (Levothyroxine Sodium) 150 Mcg Tablet, 150 MCG PO DAILY, (Reported) Entered as Reported by: ABDULAZIZ GONZALEZ on 11/06/15 1545 Methocarbamol (Robaxin-750) 750 Mg Tablet, 750-1,500 MG PO Q6H PRN for PAIN-MILD TO MODERATE Prescribed by: ASHLEY MARTINEZ on 04/03/18 1823 Nitrofurantoin Monohyd/M-Cryst (Macrobid 100 mg Capsule) 100 Mg Capsule, 1 TAB PO BID Prescribed by: RUDDY RODRÍGUEZ on 03/17/17929 Omeprazole (Omeprazole) 20 Mg Capsule.dr, 20 MG PO BID Prescribed by: MATTHEW HARRIS on 12/04/20 135 Ondansetron (Ondansetron Odt) 4 Mg Tab.rapdis, 4 MG PO Q6H PRN for NAUSEA/VOMITING Prescribed by: MATTHEW HARRIS on 12/04/20 135 Oxycodone HCl/Acetaminophen (Percocet 10-325 mg Tablet) 1 Each Tablet, 1-2 EACH PO Q6H PRN for PAIN-MILD TO MODERATE Prescribed by: MATTHEW HARRIS on 03/13/17 0059 Phenazopyridine HCl (Pyridium) 200 Mg Tablet, 1 TAB PO TID Prescribed by: RUDDY RODRÍGUEZ on 03/17/17929 Sucralfate (Carafate) 1 Gm Tablet, 1 GM PO QIDACHS Prescribed by: MATTHEW HARRIS on 12/04/201355 Tamsulosin HCl (Flomax) 0.4 Mg Cap, 0.4 MG PO DAILY Prescribed by: RUDDY RODRÍGUEZ on 03/17/17929 Review of Systems Review of Systems Constitutional: No chills, No fever Eyes: Denies Blurred Vision Ears, Nose, Mouth, Throat: no symptoms reported Respiratory: no symptoms reported Cardiovascular: no symptoms reported Gastrointestinal: no symptoms reported Genitourinary: no symptoms reported Musculoskeletal: no symptoms reported Skin: no symptoms reported Psychiatric/Neurological: Other (Dizziness) Endocrine: No Symptoms Reported Hematologic/Lymphatic: No Symptoms Reported All Other Systems Reviewed Negative Unless Noted: Yes Past Efxkocs-Goihzc-Sdpemp Hx Patient Social History Tobacco Use?: No Use of E-Cig and/or Vaping dev: No Substance use?: No Alcohol Use?: No Pt feels they are or have been: No Immunizations Up To Date Tetanus Booster (TDap): Unknown First/Initial COVID19 Vaccinat: November COVID19 Vaccination Jaiden: November COVID19 Vaccination Date: NOVEMBER Seasonal Allergies Seasonal Allergies: No Past Medical History Surgeries: Yes (SHOULDER SCOPE) Section, Hysterectomy Respiratory: No Cardiac: Yes (STRESS TEST OVER A YEAR AGO - NO PROBLEMS) Hypertension Neurological: Yes (HASN'T HAD ONE IN A VERY LONG TIME) Reproductive Disorders: No Female 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 HIV/AIDS: No Kidney Stones Gastrointestinal: No (GALLSTONES) Gall Bladder Disease Musculoskeletal: Yes (ARTHRITIS IN HIPS) Arthritis Endocrine: Yes Hypothyroidsim Loss of Vision: Bilateral Hearing Impairment: Denies Cancer: No Psychosocial: Yes Anxiety Integumentary: No Blood Disorders: No Adverse Reaction/Blood Tranf: No Family Medical History Coronary artery bypass surgery 19 MOTHER Dementia 19 FATHER Diabetes mellitus 19 MOTHER FH: chronic obstructive pulmonary disease 19 MOTHER FH: emphysema 19 FATHER Thyroid disease 19 FATHER Physical Exam Vital Signs Vital Signs - First Documented 10/24/21 14:12 Pulse 88 Resp 21 B/P (MAP) 167/81 (109) Pulse Ox 96 O2 Delivery Room Air Capillary Refill : Height, Weight, BMI Height: 5'1.00" Weight: 220lbs. 0.0oz. 99.736496cm; 45.00 BMI Method:Stated General Appearance: WD/WN, no apparent distress HEENT: PERRL/EOMI, normal ENT inspection, TMs normal, pharynx normal, other (Extraocular movements intact without nystagmus) Neck: non-tender, full range of motion, supple, normal inspection Respiratory: chest non-tender, lungs clear, normal breath sounds, no respirato ry distress, no accessory muscle use Cardiovascular: regular rate, rhythm, no edema, no murmur Gastrointestinal: normal bowel sounds, non tender, soft; No distended, No guarding, No rebound Back: normal inspection, no CVA tenderness, no vertebral tenderness Extremities: normal range of motion, non-tender, normal inspection, no pedal edema, no calf tenderness, normal capillary refill 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, no motor/sensory deficits, alert, normal mood/affect, oriented x 3, other (Normal hdlnkr-ed-fiyz, normal hmea-xd-fzul, normal gait) Crainal Nerves: normal hearing, normal speech, PERRL Coordination/Gait: normal finger to nose, normal gait, negative Romberg's sign Motor/Sensory: no motor deficit, no sensory deficit, no pronator drift Skin: normal color, warm/dry Lymphatic: no adenopathy Stroke Onset of Symptoms Date of Onset of Symptoms: Oct 24, 2021 Time of Symptom Onset: 21:00 Onset of Symptoms: Yes NIH Stroke Scale Assessment Level of Consciousness: 0=Alert (0), Level of Consciousness-Questions: 0=Answers both month/age (0), LOC Commands: 0=Performs both tasks (0), Visual Yoo: 0=No visual loss (0), Facial Movement (Facial Paresis): 0=Normal symmetrical mnt (0), Motor Function-Arms Right: 0=No drift (0), Motor Function-Arms Left: 0=No drift (0), Motor Function-Legs Right: 0=No drift (0), Motor Function-Legs Left: 0=No drift (0), Limb Ataxia: 0=Absent (0), Sensory: 0=Normal:no loss (0), Best Language: 0=No aphasia (0), Dysarthria: 0=Normal (0), Extinction & Inattention: 0=No abnormality (0), Total: 0 Stroke Thrombolytic Exclusion Age 18 or Over: Yes Improving Symptoms: Yes (symptoms completely resolved) IV - TPa Received IV - TPa Procedure Performed?: No Progress/Results/Core Measures Results/Orders Lab Results Laboratory Tests Test 10/24/21 14:21 Range/Units White Blood Count 7.7 4.3-11.0 10^3/uL Red Blood Count 4.61 3.80-5.11 10^6/uL Hemoglobin 13.5 11.5-16.0 g/dL Hematocrit 42 35-52 % Mean Corpuscular Volume 90 80-99 fL Mean Corpuscular Hemoglobin 29 25-34 pg Mean Corpuscular Hemoglobin Concent 33 32-36 g/dL Red Cell Distribution Width 13.1 10.0-14.5 % Platelet Count 252 130-400 10^3/uL Mean Platelet Volume 10.1 9.0-12.2 fL Immature Granulocyte % (Auto) 1 % Neutrophils (%) (Auto) 58 42-75 % Lymphocytes (%) (Auto) 29 12-44 % Monocytes (%) (Auto) 10 0-12 % Eosinophils (%) (Auto) 2 0-10 % Basophils (%) (Auto) 1 0-10 % Neutrophils # (Auto) 4.5 1.8-7.8 10^3/uL Lymphocytes # (Auto) 2.3 1.0-4.0 10^3/uL Monocytes # (Auto) 0.8 0.0-1.0 10^3/uL Eosinophils # (Auto) 0.1 0.0-0.3 10^3/uL Basophils # (Auto) 0.1 0.0-0.1 10^3/uL Immature Granulocyte # (Auto) 0.0 0.0-0.1 10^3/uL Percent Immature Platelet Fraction 2.8 0.0-7.6 % Prothrombin Time 13.2 12.2-14.7 SEC INR Comment 1.0 0.8-1.4 Activated Partial Thromboplast Time 27 24-35 SEC Sodium Level 139 135-145 MMOL/L Potassium Level 3.7 3.6-5.0 MMOL/L Chloride Level 105 98-107 MMOL/L Carbon Dioxide Level 24 21-32 MMOL/L Anion Gap 10 5-14 MMOL/L Blood Urea Nitrogen 13 7-18 MG/DL Creatinine 0.71 0.60-1.30 MG/DL Estimat Glomerular Filtration Rate 101 BUN/Creatinine Ratio 18 Glucose Level 161 H 70-105 MG/DL Calcium Level 9.4 8.5-10.1 MG/DL Corrected Calcium 9.3 8.5-10.1 MG/DL Total Bilirubin 0.4 0.1-1.0 MG/DL Aspartate Amino Transf (AST/SGOT) 55 H 5-34 U/L Alanine Aminotransferase (ALT/SGPT) 44 0-55 U/L Alkaline Phosphatase 88 40-136 U/L Troponin I < 0.028 <0.028 NG/ML Total Protein 8.0 6.4-8.2 GM/DL Albumin 4.1 3.2-4.5 GM/DL My Orders Orders - NILAY ARIAS MD Cbc With Automated Diff (10/24/21 14:23) Protime With Inr (10/24/21 14:23) Partial Thromboplastin Time (10/24/21 14:23) Comprehensive Metabolic Panel (10/24/21 14:23) Troponin I [place] (10/24/21 14:23) Chest 1 View, Ap/Pa Only (10/24/21 14:23) Ekg Tracing (10/24/21 14:23) Ed Iv/Invasive Line Start (10/24/21 14:23) Vital Signs Stroke Patient Q15M (10/24/21 14:23) O2 (10/24/21 14:23) Monitor-Rhythm Ecg Trace Only (10/24/21 14:23) Dysphagia Screening Tool (10/24/21 14:23) Ct Angio Head/Neck (10/24/21 14:23) Iohexol Injection (Omnipaque 350 Mg/Ml 1 (10/24/21 15:30) Received Contrast (Hold Metformin- Contr (10/24/21 15:30) Ns (Ivpb) (Sodium Chloride 0.9% Ivpb Bag (10/24/21 15:30) Medications Given in ED Current Medications Medications Dose Ordered Sig/Wilber Route Start Time Stop Time Status Last Admin Dose Admin Iohexol 100 ml ONCE ONCE IV 10/24/21 15:30 10/24/21 15:31 DC 10/24/21 15:34 75 ML Sodium Chloride 100 ml ONCE ONCE IV 10/24/21 15:30 10/24/21 15:31 DC 10/24/21 15:34 80 ML Vital Signs/I&O 10/24/21 14:12 Pulse 88 Resp 21 B/P (MAP) 167/81 (109) Pulse Ox 96 O2 Delivery Room Air Blood Pressure Mean: 109 Progress Progress Note : Progress Note 56-year-old female with above history coming in due to a brief episode last night in which she felt dizzy and had difficulty speaking. ABCs intact and vitals stable on presentation. Neuro exam completely normal including an NIH stroke scale of 0 currently. We will do a stroke/TIA work-up here including a C T/CTA of her head and neck. CT/CTA were normal. Patient continues to be well-appearing. Her ABCD2 score is three making her low risk for stroke within the near future. I will have her follow-up with her PCP for an expedited outpatient work-up including potential MRI brain and echo of her heart. I will start her on baby aspirin daily. She was then discharged home in stable condition with strict return precautions Initial ECG Impression Date: Oct 24, 2021 Initial ECG Impression Time: 14:30 Initial ECG Rate: 72 Initial ECG Rhythm: Normal Sinus Comment Narrow QRS, normal axis, no significant ST changes or T wave abnormalities Diagnostic Imaging Diagonstic Imaging: Xray (chest), CT (CT/CTA head and neck) Comments [facility], [place] NAME: SETH SCOTT [facility] REC#: [id number] PT STATUS: REG ER : 1965 PHYSICIAN: NILAY ARIAS MD ADMIT DATE: 10/24/21/ER Draft Date of Exam:10/24/21 CHEST 1 VIEW, AP/PA ONLY EXAMINATION: Chest 1 view HISTORY: Weakness, stroke COMPARISON: None available. FINDINGS: The lungs are clear without edema or pneumonia. No pleural effusion or pneumothorax. Heart size is normal. IMPRESSION: 1. Clear lungs. Dictated on workstation # [id number] Dict: 10/24/21 1545 Trans: 10/24/21 1546 [facility] [id number] Interpreted by: STAR MENARD MD Electronically signed by: [facility] [place] NAME: SETH SCOTT [facility] REC#: [id number] PT STATUS: REG ER : 1965 PHYSICIAN: NILAY ARIAS MD ADMIT DATE: 10/24/21/ER Draft Date of Exam:10/24/21 CT ANGIO HEAD/NECK PROCEDURE: CT angiography of the head and CT angiography of the neck with and without contrast. TECHNIQUE: Contiguous noncontrast images were obtained from the skull base through the vertex. After intravenous contrast administration, helical CT angiography of the neck was performed. Source data was reformatted into 3D MIP projections. Delayed post contrast acquisition was also obtained. Auto Exposure Controls were utilized during the CT exam to meet ALARA standards for radiation dose reduction. INDICATION: Dizziness and slurred speech. COMPARISON: None available. FINDINGS: Noncontrast imaging shows no intracranial hyperdense hemorrhage or space-occupying mass. No hydrocephalus or midline shift. Goel-white matter differentiation is well-preserved. No acute calvarial abnormality. Mild mucosal thickening in the right maxillary sinus. Other paranasal sinuses are clear. Mastoid air cells are also clear. CTA imaging of the neck shows no dissection within the aortic arch. Great vessels of the arch are widely patent. Bilateral common carotid arteries are normal. There is no stenosis of the proximal internal carotid arteries per NASCET criteria. The cervical divisions of the internal carotid arteries are normal. Bilateral vertebral arteries are patent and codominant. No vertebral artery dissection. Lung apices are clear. No cervical lymphadenopathy. Thyroid is normal. Airways widely patent. Symmetric thickening of the adenoids is likely reactive in nature. Dental caries is present in the mandibular molars. CTA imaging of the head demonstrates the distal internal carotid arteries to be patent and without terminal aneurysm or stenosis. The M1 and M2 divisions of the middle cerebral arteries are patent. Anterior cerebral arteries are patent and there is no anterior communicating artery aneurysm. The right A1 segment is hypoplastic but patent. Basilar artery is widely patent and has no terminal aneurysm. The posterior cerebral arteries are patent. No posterior communicating artery aneurysm. The dural venous sinuses are widely patent. No enhancement on delayed phase imaging. IMPRESSION: 1. No intracranial hemorrhage, large vessel occlusion or saccular aneurysm. 2. Patent dural venous sinuses. 3. No stenosis, dissection or occlusion within the major neck arteries. Dictated on workstation # [id number] Dict: 10/24/21 1544 Trans: 10/24/21 1556 [facility] [phone] Interpreted by: GINA NOEL MD Electronically signed by: Departure Impression Primary Impression: Dizziness Additional Impression: Word finding difficulty Disposition: 01 HOME, SELF-CARE Condition: Stable Departure-Patient Inst. Decision time for Depature: 16:06 Referrals: [facility]) Primary Care Physician JERSON ESTRELLA APRN (Family) Primary Care Physician Patient Instructions: Dizziness, Adult ED Add. Discharge Instructions: The imaging of your head and neck were normal today which is reassuring. Is less likely you had a true TIA at this point. If this occurs again I recommend you immediately come to the emergency department to rule out stroke. I recommend you take a baby aspirin daily which is 81 mg. Follow-up with your regular doctor and I would like them to order an echocardiogram of your heart within the next week. I also ordered an MRI of your brain to be done as an outpatient early next week. Work/School Note: Work Release Form Date Seen in the Emergency Department: Oct 24, 2021 Return to Work: Oct 25, 2021 Restrictions: No Restrictions NILAY ARIAS MD Oct 24, 2021 14:29
[2021-10-24 14:45] LABS: ALBUMIN 4.1 GM/DL (3.2-4.5); BASOPHILS # (AUTO) 0.1 10^3/uL (0.0-0.1); BASOPHILS % (AUTO) 1 % (0-10); EOSINOPHILS # (AUTO) 0.1 10^3/uL (0.0-0.3); EOSINOPHILS % (AUTO) 2 % (0-10); HEMATOCRIT 42 % (35-52); HEMOGLOBIN 13.5 g/dL (11.5-16.0); LYMPHOCYTES # (AUTO) 2.3 10^3/uL (1.0-4.0); LYMPHOCYTES % (AUTO) 29 % (12-44); MEAN CORPUSCULAR HEMOGLOBIN 29 pg (25-34); MEAN CORPUSCULAR HGB CONC 33 g/dL (32-36); MEAN CORPUSCULAR VOLUME 90 fL (80-99); MEAN PLATELET VOLUME 10.1 fL (9.0-12.2); MONOCYTES # (AUTO) 0.8 10^3/uL (0.0-1.0); MONOCYTES % (AUTO) 10 % (0-12); NEUTROPHILS # (AUTO) 4.5 10^3/uL (1.8-7.8); NEUTROPHILS % (AUTO) 58 % (42-75); PLATELET COUNT 252 10^3/uL (130-400); PROTHROMBIN TIME PATIENT 13.2 SEC (12.2-14.7); WHITE BLOOD COUNT 7.7 10^3/uL (4.3-11.0)
[2021-10-24 14:46] LABS: CHLORIDE 105 MMOL/L (98-107); POTASSIUM 3.7 MMOL/L (3.6-5.0); SODIUM 139 MMOL/L (135-145)
[2021-10-24 14:47] LABS: CALCIUM 9.4 MG/DL (8.5-10.1)
[2021-10-24 14:48] LABS: GLUCOSE 161 MG/DL (70-105)
[2021-10-24 14:49] LABS: CARBON DIOXIDE 24 MMOL/L (21-32)
[2021-10-24 14:50] LABS: BILIRUBIN,TOTAL 0.4 MG/DL (0.1-1.0)
[2021-10-24 14:51] LABS: ALKALINE PHOSPHATASE 88 U/L (40-136)
[2021-10-24 14:52] LABS: CREATININE SERUM 0.71 MG/DL (0.60-1.30); GFR ESTIMATED 101
[2021-10-24 14:53] LABS: BUN/CREATININE RATIO 18
[2021-10-24 14:55] LABS: ALANINE AMINOTRANSFERASE 44 U/L (0-55)
[2021-10-24] MEDS ORDERED: NS 100 ML (IVPB) BAG IV ONE (15:30)
[2021-10-24] MEDS ORDERED: HOLD METFORMIN - RECEIVED CONTRAST 20 ML VIAL IV SCH (15:30)
[2021-10-24] MEDS ORDERED: IOHEXOL 350 MG/ML 100 ML (OMNIPAQUE 350) VIAL IV ONE (15:30)
--- NOTE | 2021-10-24 15:46 | Diagnostic Imaging Report ---
EXAMINATION: Chest 1 view HISTORY: Weakness, stroke COMPARISON: None available. FINDINGS: The lungs are clear without edema or pneumonia. No pleural effusion or pneumothorax. Heart size is normal. IMPRESSION: 1. Clear lungs. Dictated by: Dictated on workstation # [id number]
--- NOTE | 2021-10-24 15:56 | Diagnostic Imaging Report ---
PROCEDURE: CT angiography of the head and CT angiography of the neck with and without contrast. TECHNIQUE: Contiguous noncontrast images were obtained from the skull base through the vertex. After intravenous contrast administration, helical CT angiography of the neck was performed. Source data was reformatted into 3D MIP projections. Delayed post contrast acquisition was also obtained. Auto Exposure Controls were utilized during the CT exam to meet ALARA standards for radiation dose reduction. INDICATION: Dizziness and slurred speech. COMPARISON: None available. FINDINGS: Noncontrast imaging shows no intracranial hyperdense hemorrhage or space-occupying mass. No hydrocephalus or midline shift. Goel-white matter differentiation is well-preserved. No acute calvarial abnormality. Mild mucosal thickening in the right maxillary sinus. Other paranasal sinuses are clear. Mastoid air cells are also clear. CTA imaging of the neck shows no dissection within the aortic arch. Great vessels of the arch are widely patent. Bilateral common carotid arteries are normal. There is no stenosis of the proximal internal carotid arteries per NASCET criteria. The cervical divisions of the internal carotid arteries are normal. Bilateral vertebral arteries are patent and codominant. No vertebral artery dissection. Lung apices are clear. No cervical lymphadenopathy. Thyroid is normal. Airways widely patent. Symmetric thickening of the adenoids is likely reactive in nature. Dental caries is present in the mandibular molars. CTA imaging of the head demonstrates the distal internal carotid arteries to be patent and without terminal aneurysm or stenosis. The M1 and M2 divisions of the middle cerebral arteries are patent. Anterior cerebral arteries are patent and there is no anterior communicating artery aneurysm. The right A1 segment is hypoplastic but patent. Basilar artery is widely patent and has no terminal aneurysm. The posterior cerebral arteries are patent. No posterior communicating artery aneurysm. The dural venous sinuses are widely patent. No enhancement on delayed phase imaging. IMPRESSION: 1. No intracranial hemorrhage, large vessel occlusion or saccular aneurysm. 2. Patent dural venous sinuses. 3. No stenosis, dissection or occlusion within the major neck arteries. Dictated by: Dictated on workstation # [id number]
[2021-10-24] MEDS ORDERED: ASPIRIN 81 MG CHEW (CHILDREN'S ASA) PO ONE (16:15)
[2021-10-24 16:21] VITALS: BP 137/80
== END 2021-10-24 16:21 | disposition home or self-care (01) ==
LOC: EDUNIT# 14:01 → ER 14:02
DX: R42 Dizziness and giddiness (principal); R47.9 Unspecified speech disturbances; I10 Essential (primary) hypertension; F41.9 Anxiety disorder, unspecified; E03.9 Hypothyroidism, unspecified; Z79.890 Hormone replacement therapy; Z79.899 Other long term (current) drug therapy
CPT/HCPCS: 36415; 70496; 70498; 71045; 80053; 84484; 85025; 85610; 85730; 93005; 93041

== ENCOUNTER → 2021-10-30 | Outpatient (CLI) | payer SELFPAY ==
--- NOTE | 2021-10-30 15:20 | Diagnostic Imaging Report ---
CLINICAL INDICATION: Patient had an episode of possible TIA, speech difficulty and dizziness. EXAM: MRI of the brain performed without IV contrast. Sequences include sagittal T1, axial T2, axial flair, axial gradient echo, and axial T1. COMPARISON: CT angiogram of the head/neck dated 10/24/2021. FINDINGS: There is no evidence of acute cerebral infarct, intracranial hemorrhage, or gross mass effect. The brain parenchymal volume appears appropriate for patient's age. There are a few focal areas of high T2 signal white matter changes involving both cerebral hemispheres which may be related to chronic small vessel ischemic disease. There is normal fairchild-white matter distinction. There is no significant midline shift or herniation. The [place] vascular structures show no gross abnormality as visualized. The pituitary gland, sella, and suprasellar regions are unremarkable as visualized. There is no evidence of hydrocephalus. The basal cisterns are unremarkable. The skull, extracranial soft tissue, and orbits are unremarkable. There is minimal mucosal thickening involving both maxillary sinuses, ethmoid sinus, and frontal sinus. There is minimal fluid in both mastoid air cells. IMPRESSION: 1: There is no evidence of acute intracranial process. 2: There is mild age-related brain parenchymal changes. 3: There is minimal paranasal sinus disease and a small amount of fluid involving both mastoid air cells. Dictated by: Dictated on workstation # [id number]
== END ==
LOC: RAD 14:00
PROVIDERS: ATTEND Emergency Medicine
DX: G45.9 Transient cerebral ischemic attack, unspecified (principal); G93.89 Other specified disorders of brain
CPT/HCPCS: 70551